=== PATIENT | female | born 2000 | race Hispanic/Latino ===

== ENCOUNTER 2022-11-20 08:45 | Emergency (ER) | payer OTHER, SELFPAY ==
--- OUTSIDE RECORDS SUMMARY | 2022-11-20 08:53 | XMS REPORT | Continuity of Care Document ---
:2000 Author Organization [facility] t Address [address] [place] [address] Care Team Providers Name Role Phone PCP, PATIENT DOES NOT HAVE A Primary Care Physician José Stern Attending Clinician Unavailable WALLACE VASQUEZ Attending Clinician Unavailable Asaf Meneses MD Attending Clinician Wallace Vasquez MD Attending Clinician Amdaeo Bacon Attending Clinician AMADEO HENDRICKS Attending Clinician Unavailable Claudy Kyle Attending Clinician Unavailable Leonila Pope Attending Clinician Unavailable Naz Haddad Attending Clinician Unavailable Jany Hammond Attending Clinician Unavailable Jameson Banerjee Attending Clinician Unavailable Kashmir VITALE, Bari Mera Attending Clinician Medardo Delgado Attending Clinician Unavailable Jovi White Attending Clinician Unavailable Leona VITALE, Galen Attending Clinician GALEN JACKSON Attending Clinician Unavailable Ramesh Mason Attending Clinician RAMESH EASTMAN Attending Clinician Unavailable Monica Ash Attending Clinician Unavailable Dm VITALE, Victor M Burks Attending Clinician Lashaun Blackburn DO Attending Clinician Quan VITALE, Mati Greene Attending Clinician Marylou Latham Attending Clinician Claudy Kyle Admitting Clinician Unavailable AMADEO HENDRICKS Admitting Clinician Unavailable Physician, No Primary or Family Admitting Clinician Unavaila RAMESH Macias Admitting Clinician Unavailable Payers Payer Name Policy Policy Number Effective Expiration Source Type Date Date [facility] [id number] 2016 00:00:00 [facility] [id number] 2016 [facility] PLANTX 00:00:00 [facility] [id number] 2015 -PresentHMO HIM MONTE [id number] 2020 [facility] COMM NON 00:00:00 [facility] MARKETPLACE [id number] 2020-P resentPPO Problems Condition Condition Condition Status Onset Resolution Last Treating Co mments Source Name Details Category Date Date Treatment Clinician Date No known No known Disease Unive rs active active ity of problems problems [facility] Allergies, Adverse Reactions, Alerts Allergy Allergy Status Severity Reaction(s) Onset Inactive Treating Comm ents Source Name Type Date Date Clinician No Known DA Active U [facility] Clear s 00:00: Whitney 00 [facility] No Known DA Active U 2022-0 [facility] All[facility]ie 2-06 Clear s 00:00: Whitney 00 [facility] No Known DA Active U 2018-0 [facility] 3-25 [place] 00:[facility]: e 00 [facility] No Known DA Active U 2018-0 [facility] Allergie 3-25 [place] 00:00: e 00 [facility] No Known DA Active U 2016-0 [facility] Allergie 5-13 Clear s 00:00: Whitney 00 [facility] No Known DA Active U 2014-0 [facility] Allergie 6-02 Clear s 00:00: Whitney 00 [facility] NO KNOWN Drug Active Univers ALLERGIE Class ity of S [facility] Social History Social Habit Start Date Stop Date Quantity Comments Source Exposure to Not sure [facility] SARS-CoV-2 [facility] (event) [place] Alcohol intake 2021-03-28 2021-03-28 Ex-drinker [facility] 00:00:00 00:00:00 (finding) Tobacco use and 2021-02-02 2021-02-02 Never used Universit y of exposure 00:00:00 00:00:00 [facility] Sex Assigned At [birth year] [facility] 00:00:00 00:00:00 Smoking Status Start Date Stop Date Source Social History [facility] Medications Ordered Filled Start Stop Current Ordering Indication Dosage Frequency Signature Comments Components Source Medication Medication Date Date Medication? Clinician (SIG) Name Name ondansetron Yes [id number] 4mg Take 1 Univers 4 mg 3-09 tablet by ity of disintegrat 00:00: mouth [place] ing tablet 00 every 8 Medica l (eight) Branch hours as needed for Nausea and Vomiting (N/V) for up to 16 doses. acetaminoph Yes [id number] 1{tbl} Take 1 Un cherelle en-codeine 3-09 tablet by ity of 300-30 mg 00:00: mouth [place] tablet 00 every 6 Medical (six) Branch hours as needed for Pain (scale 1-3) for up to 16 doses. Indication s: acute pain cefpodoxime 2021- No [id number] 200mg Take 1 Univers 200 mg 3-09 03-24 tablet by ity of tablet 00:00: 04:59 mouth 2 [place] 00 :00 (two) Medical times Branch daily for 14 days. iopamidol 2020- No [id number] 100mL 100 mL, Univers (ISOVUE 01-29 Intravenou ity o f 300-500 mL) 16:30: 15:26 s, ONCE, 1 [place] injection 00 :00 dose, Fri Medic al 100 mL 01/29/21 at Branch 1130, Routine ketorolac 2020- No 30mg 30 mg, Unive rs (TORADOL) 01-29 Slow IV ity of injection 16:15: 16:04 Push, [place] 30 mg 00 :00 ONCE, 1 Medical dose, Fri Branch 01/29/21 at 1115, IRENE
Fa culty member approving Restricted medication : RAMESH EASTMAN R famotidine 2020- No 20mg 20 mg, Univ ers (PEPCID 01-29 Slow IV ity of (PF)) 16:15: 16:04 Push, [place] injection 00 :00 ONCE, 1 Medical 20 mg dose, Fri Branch 01/29/21 at 1115, IRENE ondansetron 2020- No 4mg 4 mg, Slow Univers (ZOFRAN 01-29 IV Push, ity of (PF)) 16:15: 16:05 ONCE, 1 [place] injection 4 00 :00 dose, Fri Med ical mg 01/29/21 at Branch 1115, IRENE NaCl 0.9% 2020- No 1000mL at 999 Uni vers (NS) bolus 01-29 mL/hr, ity of infusion 16:15: 17:04 1,000 mL, Luke as 1,000 mL 00 :00 IV Medical Infusion, Branch ONCE, 1 dose, 01/29/21 at 1115, STAT dicyclomine Yes [id number] 10mg Take 1 Univers 10 mg 5-07 capsule by ity of capsule 00:00: mouth 4 [place] 00 (four) Medical times Branch daily as needed for Abdominal pain. ondansetron Yes [id number] 4mg Take 1 Univers (ZOFRAN 5-07 tablet by ity of ODT) 4 mg 00:00: mouth [place] disintegrat 00 every 8 Medic al ing tablet (eight) Branch hours as needed for Nausea and Vomiting (N/V) for up to 15 doses. dicyclomine Yes Umbilical 10mg Take 1 Univers 10 mg 5-07 hernia capsule by ity of capsule 00:00: without mouth 4 [place] 00 obstruction (four) Medica l and without times Branch gangrene daily as needed for Abdominal pain. ondansetron Yes Umbilical 4mg Take 1 Univers (ZOFRAN 5-07 hernia tablet by ity o f ODT) 4 mg 00:00: without [place] disintegr[place] 00 obstruction every 8 Medical ing tablet and without (eight) Branch gangrene hours as needed for Nausea and Vomiting (N/V) for up to 15 doses. famotidine 2020- No Umbilical 20mg Take 1 Univers (PEPCID) 20 5-07 05-18 hernia tablet by ity of mg tablet 00:00: 04:59 without mouth 2 [place] 00 :00 obstruction (two) Medical and without times Branch gangrene daily for 10 days. famotidine 2020- No 20mg Q.5D Take 1 Meth franck (PEPCID) 20 4-03 04-19 tablet (20 s t MG tablet 00:00: 04:59 mg total) Ho spita 00 :00 by mouth 2 l (two) times a day for 15 days. famotidine 2020-2020- No 20mg Q.5D Take 1 Meth franck (PEPCID) 20 4-03 04-19 tablet (20 s t MG tablet 00:00: 04:59 mg total) Ho spita 00 :00 by mouth 2 l (two) times a day for 15 days. sucralfate 2020-0 2020- No 1g Q.25D Take 10 mL Methodi (Carafate) 4- 04-09 ([address] 100 mg/mL 00:00: 04:59 total) by Ho spita suspension 00 :00 mouth 4 l (four) times a day for 5 days. sucralfate 2020-0 2020- No 1g Q.25D Take 10 mL Methodi (Carafate) 4- 04-09 ([address] 100 mg/mL 00:00: 04:59 total) by Ho spita suspension 00 :00 mouth 4 l (four) times a day for 5 days. ondansetron 2020-0 Yes 4mg Q8H Take 1 Meth franck (Zofran) 4 2-07 tablet (4 st MG tablet 00:00: mg total) Hos makayla 00 by mouth l every 8 (eight) hours as needed for nausea or vomiting for up to 10 doses. ondansetron 2020-0 Yes 4mg Q8H Take 1 Meth franck (Zofran) 4 2-07 tablet (4 st MG tablet 00:00: mg total) Hos makayla 00 by mouth l every 8 (eight) hours as needed for nausea or vomiting for up to 10 doses. ondansetron 2020-0 Yes 4mg Q8H Take 1 Meth franck (Zofran) 4 2-07 tablet (4 st MG tablet 00:00: mg total) Hos makayla 00 by mouth l every 8 (eight) hours as needed for nausea or vomiting for up to 10 doses. nitrofurant 2020- No 100mg Q.5D Take 1 Me thodi oin, 10-[address] macrocrysta 00:00: 05:59 (100 mg Ho spita l-monohydra 00 :00 total) by l te, mouth 2 (MACROBID) (two) 100 MG times a capsule day for 5 days. nitrofurant 2020- No 100mg Q.5D Take 1 Me thodi oin, 10-[address] macrocrysta 00:00: 05:59 (100 mg Ho spita l-monohydra 00 :00 total) by l te, mouth 2 (MACROBID) (two) 100 MG times a capsule day for 5 days. fluconazole 2020- No 100mg Take 1 Me thodi (DIFLUCAN) 10-[address] 100 MG 00:00: 05:59 (100 mg Hospita tablet 00 :00 total) by l mouth once for 1 dose. fluconazole 2020-2020- No 100mg Take 1 Me thodi (DIFLUCAN) 10-[address] 100 MG 00:00: 05:59 (100 mg Hospita tablet 00 :00 total) by l mouth once for 1 dose. ondansetron 2020-2020- No 4mg Q8H Take 1 Met hodi ODT (Zofran 17 -17 tablet (4 st ODT) 4 MG 00:00: 05:59 mg total) Ho spita disintegrat 00 :00 by mouth l ing tablet every 8 (eight) hours as needed for nausea or vomiting for up to 30 days. ondansetron 2020- No 4mg Q8H Take 1 Met hodi ODT (Zofran -17 -17 tablet (4 st ODT) 4 MG 00:00: 05:59 mg total) Ho spita disintegrat 00 :00 by mouth l ing tablet every 8 (eight) hours as needed for nausea or vomiting for up to 30 days. amoxicillin 2020- No 1{tbl} Q12H Take 1 M ethodi -pot 1-17 10-[address] clavulanate 00:00: 05:59 mouth Hosp katerin (AUGMENTIN) 00 :00 every 12 l 875-125 mg (twelve) per tablet hours for 10 days. amoxicillin 2020- No 1{tbl} Q12H Take 1 M ethodi -pot -10-[address] clavulanate 00:00: 05:59 mouth Hosp katerin (AUGMENTIN) 00 :00 every 12 l 875-125 mg (twelve) per tablet hours for 10 days. baclofen Yes 10 mg = 1 M emoria mg oral 6-19 tab, PO, l tablet 01:54: TID, # 42 Matthew n 00 tab, 1 Refill(s), Pharmacy: [facility] [id number] [employer] Yes 300 mg = 1 Mem oria 300 MG Oral 6-19 cap, PO, l Capsule 01:54: Q12H, PRN Cecilia nn 00 Pain, # 28 cap, 1 Refill(s), Pharmacy: [facility] [id number] [employer] Yes 300 mg = 1 Mem oria 300 MG Oral 6-19 cap, PO, l Capsule 01:54: Q12H, PRN Cecilia nn 00 Pain, # 28 cap, 1 Refill(s), Pharmacy: [id number] baclofen Yes 10 mg = 1 M emoria mg oral 6-19 tab, PO, l tablet 01:54: TID, # 42 Matthew n 00 tab, 1 Refill(s), [id number] Azithromyci No See Memori a n 40 MG/ML 4-18 Instructio l Oral 21:52: ns, 2.5 [place] Suspension 00 tsp today then 1.25 tsp for the next 4 dqys., # 35 mL, 0 Refill(s), [facility] Azithromyci No See Memori a n 40 MG/ML 4-18 Instructio l Oral 21:52: ns, 2.5 [place] Suspension 00 tsp today then 1.25 tsp for the next 4 dqys., # 35 mL, 0 Refill(s), [facility] Bromphenira Yes 5 mL, PO, M emoria mine 4-18 TID, PRN l Maleate 0.4 21:41: cough, X 8 Brien MG/ML / 00 day, # 120 Dextrometho mL, 0 rphan Refill(s) Hydrobromid e 2 MG/ML / Pseudoephed rine Hydrochlori de 6 MG/ML Oral Solution [Bromfed DM] Azithromyci No See Memori a n 40 MG/ML -18 Instructio l Oral 21:41: ns, 1.5 [place] Suspension 00 tsp today then 0.75 tsp next 4 days., # 25 mL, 0 Refill(s) Bromphenira Yes 5 mL, PO, M emoria mine 4-18 TID, PRN l Maleate 0.4 21:41: cough, X 8 [place] MG/ML / 00 day, # 120 Dextrometho mL, 0 rphan Refill(s) Hydrobromid e 2 MG/ML / Pseudoephed rine Hydrochlori de 6 MG/ML Oral Solution [Bromfed DM] Azithromyci No See Memori a n 40 MG/ML 4-18 Instructio l Oral 21:41: ns, 1.5 [place] Suspension 00 tsp today then 0.75 tsp next 4 days., # 25 mL, 0 Refill(s) Immunizations Ordered Filled Immunization Date Status Comments Sourc e Immunization Name Name Influenza Virus 2021-11-12 Completed Universit y of Vaccine 00:00:00 [facility] [place] [facility] Vital Signs Vital Name Observation Time Observation Value Comments Source Systolic blood 2021-12-08 18:28:00 100 mm[Hg] Univer sity of pressure [facility] Diastolic blood 2021-12-08 18:28:00 67 mm[Hg] Unive rsity of pressure [facility] [place] [facility] Heart rate 2021-12-08 18:28:00 107 /min [facility] [place] [facility] [place] Body temperature 2021-12-08 18:28:00 36.61 Naty Univ ersity [facility] [place] [facility] Respiratory rate 2021-12-08 18:28:00 18 /min Univ [facility] [place] [facility] Body height 2021-12-08 18:28:00 160 cm [facility] [place] [facility] [place] Body weight 2021-12-08 18:28:00 65.318 kg [facility] [place] [facility] [place] BMI 2021-12-08 18:28:00 25.51 kg/m2 Universi ty of [facility] [place] [facility] Oxygen saturation in 2021-12-08 18:28:00 98 /min University of Arterial blood by [facility] [place] [facility] Pulse oximetry Branch Systolic blood 2021-01-29 17:07:00 112 mm[Hg] Univer sity of pressure [facility] Diastolic blood 2021-01-29 17:07:00 73 mm[Hg] Unive rsity of pressure [facility] Heart rate 2021-01-29 17:07:00 94 /min [facility] [place] [facility] [place] Body temperature 2021-01-29 17:07:00 36.72 Naty Univ ers[facility] [place] [facility] Respiratory rate 2021-01-29 17:07:00 18 /min Univ [facility] [place] [facility] Oxygen saturation in 2021-01-29 17:07:00 100 /min University of Arterial blood by [place] [facility] Pulse oximetry Branch Body weight 2021-01-29 15:04:00 63.504 kg [facility] [place] [facility] [place] Systolic blood 2021-01-29 17:07:00 112 mm[Hg] Univer sity of pressure [facility] Diastolic blood 2021-01-29 17:07:00 73 mm[Hg] Unive rsity of pressure [facility] Heart rate 2021-01-29 17:07:00 94 /min Universi [facility] Body temperature 2021-01-29 17:07:00 36.72 Naty [facility] Respiratory rate 2021-01-29 17:07:00 18 /min [facility] Oxygen saturation in 2021-01-29 17:07:00 100 /min University Arterial blood by [facility] [place] [facility] Pulse oximetry Branch Body weight 2021-01-29 15:04:00 63.504 kg [facility] Oxygen saturation in 2021-03-28 22:00:00 99 /min [facility] Arterial blood by Pulse oximetry Systolic blood 2021-03-28 22:00:00 108 mm[Hg] [facility] pressure Diastolic blood 2021-03-28 22:00:00 62 mm[Hg] [facility] pressure Heart rate 2021-03-28 22:00:00 87 /min [facility] Respiratory rate 2021-03-28 22:00:00 20 /min [facility] Body temperature 2021-03-28 20:41:00 36.89 Naty [facility] Body height 2020-12-26 14:22:00 162.6 cm [facility] Body weight 2020-12-26 14:22:00 64.6 kg [facility] BMI 2020-12-26 14:22:00 24.45 kg/m2 [facility] Weight 2018-03-13 01:37:[address] [facility] [place] Systolic (mm Hg) 2018-03-13 01:37:00 Len rial [place] Diastolic (mm Hg) 2018-03-13 01:37:00 Mem orial [place] Heart Rate 2018-03-13 01:37:00 [facility] BMI Calculated 2018-03-13 01:37:00 Memori al [place] Height 2018-03-13 01:37:00 [facility] Oral (F) 2018-03-13 01:37:00 98.0 F [facility] [place] Weight 2018-01-10 21:06:00 [facility] BMI Calculated 2018-01-10 21:06:00 Memori al [place] Height 2018-01-10 21:06:00 170.18 cm [facility] Heart Rate 2018-01-10 21:06:00 [facility] Temperature Oral (F) 2018-01-10 21:06:00 97.8 F Darrian Tesfaye Systolic (mm Hg) 2018-01-10 21:06:00 Len Tesfaye Diastolic (mm Hg) 2018-01-10 21:06:00 Mem orial [place] Procedures Procedure Date / Time Performing Clinician Source Performed POCT URINALYSIS 2021-12-08 00:00:00 Bari Delgadillo [facility] [id number] 2021-11-11 00:00:00 [facility] [id number] 2021-11-11 00:00:00 [facility] [id number] 2021-11-11 00:00:00 [facility] [id number] 2021-11-11 [facility]:00[facility] US SINGLE LESS 2021-03-28 23:08:37 [facility] THAN 14 WEEKS URINE CULTURE 2021-03-28 21:01:00 [facility] HC COMPLETE BLD COUNT 2021-03-28 21:01:00 [facility] W/AUTO DIFF BASIC METABOLIC PANEL 2021-03-28 21:01:00 [facility] URINALYSIS SCREEN AND 2021-03-28 21:01:00 [facility] MICROSCOPY, WITH REFLEX TO CULTURE HCG QUALITATIVE, URINE 2021-03-28 21:01:00 [facility] [place] SCREEN HCG QUANTITATIVE, SERUM 2021-03-28 21:01:00 [facility] ESTIMATED GFR 2021-03-28 21:01:00 [facility] ECG 12-LEAD 2021-03-28 20:46:20 [facility] ECG ED PRELIMINARY 2021-03-28 20:39:29 [facility] INTERPRETATION CT ABDOMEN PELVIS W 2021-01-29 15:31:28 Ramesh Eastman [facility] POCT TEST 2021-01-29 15:23:00 Ramesh Eastman [facility] LIPASE 2021-01-29 15:20:00 Ramesh Eastman [facility] TEST, SERUM 2021-01-29 15:20:00 Ramesh Eastman [facility] HEPATIC FUNCTION PANEL 2021-01-29 15:20:00 Ramesh Eastman [facility] ([id number]) (ALB,T.PRO,BILI Medical Branch T,BU/BC,ALT,AST,ALK PHOS) BASIC METABOLIC PANEL 2021-01-29 15:20:00 Ramesh Eastman [facility] (NA, K, CL, CO2, GLUCOSE, Medica l Branch BUN, CREATININE, CA) CBC WITH DIFF 2021-01-29 15:20:00 Ramesh Eastman [facility] URINALYSIS 2021-01-29 15:20:00 Ramesh Eastman [facility] URINE CULTURE 2020-12-26 15:13:00 [facility] US GALLBLADDER 2020-12-26 14:58:43 [facility] URINALYSIS SCREEN AND 2020-12-26 14:57:00 [facility] MICROSCOPY, WITH REFLEX TO CULTURE HC COMPLETE BLD COUNT 2020-12-26 14:43:00 [facility] W/AUTO DIFF COMPREHENSIVE METABOLIC 2020-12-26 14:43:00 [facility] PANEL LIPASE LEVEL 2020-12-26 14:43:00 [facility] HCG QUALITATIVE, SERUM 2020-12-26 14:43:00 [facility] SCREEN ESTIMATED GFR 2020-12-26 14:43:00 [facility] XR ABDOMEN 1 VW 2020-11-01 16:50:00 [facility] URINE CULTURE 2020-11-01 16:08:00 [facility] HC COMPLETE BLD COUNT 2020-11-01 15:43:00 [facility] W/AUTO DIFF COMPREHENSIVE METABOLIC 2020-11-01 15:43:00 [facility] PANEL LIPASE LEVEL 2020-11-01 15:43:00 [facility] HCG QUALITATIVE, SERUM 2020-11-01 15:43:00 [facility] SCREEN URINALYSIS SCREEN AND 2020-11-01 15:43:00 [facility] MICROSCOPY, WITH REFLEX TO CULTURE ESTIMATED GFR 2020-11-01 15:43:00 [facility] URINE CULTURE 2020-10-21 08:36:00 Lashaun Blackburn spital URINALYSIS SCREEN AND 2020-10-21 08:18:00 Lashaun Blackburn [facility] MICROSCOPY, WITH REFLEX TO CULTURE HCG QUALITATIVE, URINE 2020-10-21 08:18[facility]00 [facility] 2020-10-21 07:34:00 Lashaun Blackburn spital XR ABDOMEN ACUTE INC 2020-10-11 21:39:51 [facility] CHEST 1V URINE CULTURE 2020-10-11 21:12:00 [facility] HC COMPLETE BLD COUNT 2020-10-11 21:12:[address] [facility] W/AUTO DIFF COMPREHENSIVE METABOLIC 2020-10-11 21:12:[address] [facility] PANEL LIPASE LEVEL 2020-10-11 21:12:00 [facility] URINALYSIS SCREEN AND 2020-10-11 21:12:00 [facility] MICROSCOPY, WITH REFLEX TO CULTURE HCG QUALITATIVE, URINE 2020-10-11 21:12:00 [facility] SCREEN ESTIMATED GFR 2020-10-11 21:12:00 [facility] Strapping; ankle and/or 2018-03-13 01:54:00 Len escudero [place] foot Tonsillectomy [facility] Plan of Care Planned Activity Planned Date Details Comments Source Future Scheduled 2022-09-17 Screening for [facility] Test 07:02:04 malignant neoplasm of cervix (procedure) [code = 770991534] Future Scheduled 2022-09-17 INFLUENZA VACCINE Method [facility] Test 07:02:04 [code = INFLUENZA VACCINE] Future Scheduled 2022-09-17 COVID-19 VACCINE (#1) [facility] [place] Test 07:02:04 [code = COVID-19 VACCINE (#1)] Future Scheduled 2022-09-17 Screening for [facility] Test 07:02:04 Chlamydia trachomatis (procedure) [code = 060268733] Future Scheduled 2022-09-17 Hepatitis C screening [facility] [place] Test 07:02:04 (procedure) [code = 547753339] Future Scheduled 2021-05-26 INFLUENZA VACCINE Univer sity [place] Test 00:00:00 (Season Ended) [code = Medic al Branch INFLUENZA VACCINE (Season Ended)] Future Scheduled 2020 DTaP,Tdap,and Td Univers ity [facility] Test 00:00:00 Vaccines (1 - Tdap) Medical Branch [code = DTaP,Tdap,and Td Vaccines (1 - Tdap)] Future Scheduled 2019 Hepatitis C screening [facility] [place] Test 00:00:00 (procedure) [code = Medical Branch 543678977] Future Scheduled 2017 Screening for [facility] Test 00:00:00 Chlamydia trachomatis Medica l Branch (procedure) [code = 422150305] Future Scheduled 2017 SARS-CoV-2 (COVID-19) [facility] [place] Test 00:00:00 Vaccine (1) [code = Medical Branch SARS-CoV-2 (COVID-19) Vaccine (1)] Future Scheduled 2013 Depression screening [facility] [place] Test 00:00:00 (procedure) [code = Medical Branch 140492848] Future Scheduled 2013 Well child visit Univers ity [facility] Test 00:00:00 (procedure) [code = Medical Branch [id number]] Future Scheduled 2012 HPV VACCINES (1 - [facility] [place] Test 00:00:00 2-dose series) [code = Medic al Branch HPV VACCINES (1 - 2-dose series)] Future Scheduled 2011 MENINGOCOCCAL B [facility] [place] Test 00:00:00 VACCINES (1 of 2 - Medical B ranch Risk Bexsero 2-dose series) [code = MENINGOCOCCAL B VACCINES (1 of 2 - Risk Bexsero 2-dose series)] Future Scheduled 2002 VARICELLA VACCINES (1 Un iversity [facility] Test 00:00:00 of 2 - 2-dose Medical Branch childhood series) [code = VARICELLA VACCINES (1 of 2 - 2-dose childhood series)] Future Scheduled EKG-12 LEAD ROUTINE [facility] ONCE [code = 4135] Medical B ranch Future Scheduled COVID-19 VACCINE (1) Met [facility] Test [code = COVID-19 VACCINE (1)] Future Scheduled [facility]IA [facility] [code = CHLAMYDIA SCREENING] Future Scheduled Hepatitis C screening [facility] Test (procedure) [code = 781184967] Future Scheduled INFLUENZA VACCINE [facility] Test [code = INFLUENZA VACCINE] Future Scheduled CHLAMYDIA SCREENING Meth odist Hospital Test [code = CHLAMYDIA SCREENING] Future Scheduled COVID-19 [facility]ACCINE (1) [facility] [code = COVID-19 VACCINE (1)] Future Scheduled Hepatitis C screening Me [facility] Test (procedure) [code = 529533149] Future Scheduled INFLUENZA VACCINE Method [facility] Hospital Test [code = INFLUENZA VACCINE] Encounters Start End Encounter Admission Attending Care Care Encounter Source Date/Time Date/Time Type Type Clinicians Facility Department ID 2022-05-09 2022-05-09 Emergency EM ILYA Katz SHERLYN [id number] [facility] 12:17:00 13:46:00 José 80 Psychiatric 2022-05-09 2022-05-09 Emergency EM ILYA Katz YOLIS [id number] [facility] 12:17:00 13:46:00 José [id number] Psychiatric 2021-12-22 2021-12-22 Outpatient R [facility] [facility] [id number] Univers 16:00:00 16:00:00 ity [facility] 2021-12-08 2021-12-08 Outpatient R CHRISTINA [facility] [id number] Univers 13:30:00 14:20:14 WALLACE itpallavi [facility] 2021-12-08 2021-12-08 Office Asaf Meneses [facility] 1.2.840 .114 [id number] Univers 13:30:00 14:20:14 Visit Wallace Vasquez PRIMARY 350.1.13.10 ity of CARE 4.2.7.2.686 [facility] [phone] [address] 2021-12-01 2021-12-01 Emergency [facility] 1.2.034.475 [id number] Univers 12:56:00 19:46:00 [facility] 350.1.13.10 it y of [place]AG[place] 4.2.7.2.686 [facility] [phone] [address] ([facility]) 2021-12-01 2021-12-01 Emergency X [facility], [facility] ERT [id number] Univers 12:56:00 19:46:00 AMADEO marypallavi [facility] 2021-11-15 2021-11-15 Outpatient [facility] PIJFGRD LYG [facility] 00:00:00 00:00:00 [id number] 2021-11-11 2021-11-13 Inpatient Claudy Madera [facility]L OBPP [id number] [facility] 05:52:00 15:50:00 19 Psychiatric 2021-11-08 2021-11-08 Outpatient [facility] PIJFGRD LYG COH 00:00:00 00:00:00 [id number] 2021-10-31 2021-10-31 Emergency EM Niko, HCACL SHAUN [id number] [facility] 14:17:00 16:30:00 Leonila 24 Psychiatric 2021-10-28 2021-10-28 Emergency EM Delroy [facility] SHAUN [id number] [facility] 00:20:00 02:30:00 Puckly, 63 Clear Naz [facility] 2021-04-23 2021-04-23 Outpatient Jany Loja [facility]L [facility] [id number] [facility] 13:25:00 13:25:00 57 Psychiatric 2021-04-22 2021-04-22 Emergency EM Lavonne, HCACL SHERLYN [id number] [facility] 11:04:00 16:29:00 Jameson 97 Psychiatric 2021-03-28 2021-03-28 Emergency Bari Marlow 1.2.840.1 [id number] Methodi 15:36:00 19:36:[address] 3.430.2.7 Hospit a .3.202255 l .8 2021-03-28 2021-03-28 Travel 1.2.840.1 1.2.994.091 1701 [id number] Methodi 00:00:00 00:00:[address] 3.430.2.7 0.2.7.3.698 Ho spita .3.200839 084.8 l .8 2021-03-07 2021-03-07 Emergency EM Sandy, YOLISBM SHERLYN [id number] [facility] 19:00:00 22:26:00 Medardo 36 [facility] 2021-03-02 2021-03-02 Inpatient EL Jovi White [facility] OPLA [id number] [id number] [facility] 08:00:00 23:00:00 50 [facility] 2021-03-02 2021-03-02 Outpatient Jovi White [facility] LABO [id number] [facility] 13:28:00 13:28:00 13 Psychiatric 2021-02-02 2021-02-02 Office Leona Galen [facility] 1.2.840.114 [id number] 15:39:18 15:54:18 Visit Health 350.1.13.10 Clear 4.2.7.2.686 [place] [phone] [place] [address] Office Building 2021-02-02 2021-02-02 Office Leona Galen [facility] 1.2.840.114 [id number] Univers 15:39:18 15:54:18 Visit Health 350.1.13.10 it y of [place].686 [place] [id number] [address] Office Building 2021-02-02 2021-02-02 Outpatient GALEN HAYES [facility] [id number] Univers 15:45:00 15:45:00 itpallavi [facility] 2021-01-29 2021-01-29 Emergency Sangeeta [facility] 1.2.218.074 [id number] Univers 10:06:00 12:11:00 Ramesh [facility] 350.1.13.10 it y [place] 4.2.7.2.686 [facility] [phone] [address] ([facility]) 2021-01-29 2021-01-29 Emergency X SANGEETA, [facility] ERT [id number] Univers 10:06:00 12:11:00 RAMESH pallavi [facility] 2021-01-29 2021-01-29 Emergency X SANGEETA, [facility] ERT [id number] Univers 10:06:00 10:06:00 RAMESH [facility] 2021-01-03 2021-01-03 Emergency EM Dark, Monica HCACL SHERLYN [id number] [facility] 09:26:00 12:57:00 72 Psychiatric 2020-12-26 2020-12-26 Emergency Hujesus, 1.2.840.1 [id number] [id number] Methodi 09:18:00 10:56:[address]1.[address] 3.430.2.7 Hospit a .3.188054 l .8 2020-12-26 2020-12-26 Travel 1.2.840.1 1.2.678.825 9521 [id number] Methodi 00:00:00 00:00:[address] 3.430.2.7 0.2.7.3.698 Ho spita .3.234384 084.8 l .8 2020-12-19 2020-12-19 Inpatient HCACL HCACL [id number] [facility] 10:48:26 10:48:26 53 Psychiatric 2020-11-01 2020-11-01 Emergency Huque, 1.2.840.1 [id number] Methodi 09:26:00 11:51:00 Victor M Sifuentesun 36594.1.[address] 3.430.2.7 Hospit a .3.363829 l .8 2020-11-01 2020-11-01 Travel 1.2.840.1 1.2.034.791 3756 [id number] Methodi 00:00:00 00:00:[address] 3.430.2.7 0.2.7.3.698 Ho spita .3.682698 084.8 l .8 2020-10-24 2020-10-26 Inpatient HCACL SHERLYN [id number] [facility] 12:05:00 07:20:[address] [place] [address] 2020-10-21 2020-10-21 Emergency Svach, 1.2.840.1 [id number] [id number] Methodi 01:09:00 03:00:00 Lashaun R [address].1.[address] 3.430.2.7 Hospit a .3.598121 l .8 2020-10-21 2020-10-21 Travel 1.2.840.1 1.2.002.451 3574 [id number] Methodi 00:00:00 00:00:[address] 3.430.2.7 0.2.7.3.698 Ho spita .3.102528 084.8 l .8 2020-10-11 2020-10-11 Emergency Marcantel, 1.2.840.1 [id number] Methodi 14:33:00 16:18:00 Mati L [address]150.1.[address] 3.430.2.7 Hospit a .3.391262 l .8 2018-05-30 2018-05-30 Ambulatory nullFlavo [facility] [id number] Memoria 16:00:00 16:00:00 Pre-Reg r Care Clear 02 [facility] 2018-05-30 2018-05-30 Ambulatory nullFlavo MH Urgent [id number] Memoria 16:00:00 16:00:00 Pre-Reg r Care Clear 02 l Devonte Tesfaye 2018-05-30 2018-05-30 Outpatient SJ ALONZO [id number] Memoria 11:00:00 11:00:00 02 laura Tesfaye 2018-05-30 2018-05-30 Outpatient Yeison, [facility] [id number] 11:00:00 11:00:00 Marylou2018-03-13 2018-03-13 Outpatient nullFlavo [facility] [id number] [id number] Memoria 01:30:00 04:59:59 r Care Clear 01 l Devonte Tesfaye 2018-03-13 2018-03-13 Outpatient nullFlavo Urgent [id number] Memoria 01:30:00 04:59:59 r Care Clear l Devonte Tesfaye 2018-03-12 2018-03-12 Outpatient [facility] [id number] 20:30:00 23:59:59 2018-03-12 2018-03-12 Outpatient SJ ALONZO [id number] Memoria 20:30:00 20:30:00 laura Tesfaye 2018-01-10 2018-01-11 Outpatient nullFlavo Urgent [id number] Memoria 20:30:00 04:59:59 r Care Clear 00 l Devonte Tesfaye 2018-01-10 2018-01-11 Outpatient nullFlavo Urgent [id number] Memoria 20:30:00 04:59:59 r Care Clear 00 l Devonte Tesfaye 2018-01-10 2018-01-10 Outpatient [facility] [id number] 15:30:00 23:59:59 2018-01-10 2018-01-10 Outpatient [facility] [id number] Memoria 15:30:00 15:30:00 00 laura Tesfaye Results Test Description Test Time Test Comments Results Result Comments Source UA RFLX MICR CULT IF INDICATED 2022-05-09 13:26:00 Test Item Value Reference Range Interpretation Comme nts UA COLOR (test code = COLU) YELLOW YEL/STRAW UA APPEARANCE (test code = APPU) CLOUDY CLEAR A UA GLUCOSE DIPSTICK (test code = DGLUU) NEGATIVE NEGATIVE UA BILIRUBIN DIPSTICK (test code = BILU) NEGATIVE NEGATIVE UA KETONE DIPSTICK (test code = KETU) NEGATIVE NEGATIVE UA SPECIFIC GRAVITY (test code = SGU) 1.020 1.005-1.030 N UA BLOOD DIPSTICK (test code = MOY) 2+ NEGATIVE A UA PH DIPSTICK (test code = JOSE LUIS) 6.0 5.0-7.0 N UA PROTEIN DIPSTICK (test code = PROU) 2+ NEGATIVE A UA UROBILINIOGEN DIPSTICK (test code = URO) 0.2 mg/dL 0.2-1.0 UA NITRITE DIPSTICK (test code = ANA) NEGATIVE NEGATIVE UA LEUKOCYTE ESTERASE DIPSTICK (test code = LEUU) 3+ NEGA TIVE A UA WBC (test code = WBCU) >50 WBC/HPF 0-3 A UA RBC (test code = RBCU) 11-20 RBC/HPF 0-3 UA WBC NO REFLEX (test code = WBCUCL) >50 WBC/HPF 0-3 A UA BACTERIA (test code = BACU) 1+ /HPF NONE SEEN A UA SQUAMOUS CELLS (test code = SQU) 6-10 /HPF NONE SEEN A UA MUCUS (test code = MUCU) 2+ /LPF NONE SEEN A Indication for culture: Suprapubic PainSpecimen Description: CLEAN CATCHUR HCG [id number] 13:15:00 Test Item Value Reference Range Interpretation Comments UR HCG QUAL (test code = HCGQLU) NEGATIVE NEGATIVE POCT URINALYSIS W SPECIFIC [id number] 18:57:00 Test Item Value Reference Range Interpretation Comments POCT U SP GRAV (test code = 1015 mg/dl 1.005-1.025 A 3255) POCT PH U (test code = 3254) 5 mg/dl 5-8 POCT U LEUK EST (test code = - Negative - Negative 3) POCT U NIT (test code = 3262) - Negative - Negative POCT U PROT (test code = 3259) trace Negative - Negative POCT U GLU (test code = 3256) neg Negative - Negative POCT U KETONE (test code = neg Negative - Negative 8) POCT U UROBILI (test code = norm 0.2-1 0) POCT U BILI (test code = 3261) - Negative - Negative POCT U BLD (test code = 3257) trace Negative - Negative POCT U COLOR (test code = gold 3266) POCT U APPEAR (test code = clear 3267) Lab Interpretation (test code Abnormal = 61398-6) [facility]2022-02-21 13:33:00 Test Item Value Reference Range Interpretation Comments SURGICAL (test code = SR) R UN DATE: 11/15/21 [place] - LAB PAGE 1 RUN TIME: 1333 Specimen Inquiry RUN USER: INTERFACE P ATIENT: CARLOS MISHRA LOC: JESICA U #: [id number] AGE/SX: 21/F ROOM: [facility] RE11/11/21REG DR: Claudy Kyle MD : 01 BED: 1 DIS: 11/13/21 STATUS: DIS IN TLOC: SPEC #: [id number] RECD: 11/12/21-905 STATUS: SOUT REQ #: [id number] MANUEL: 11/11/21- SUBM DR: Claudy Kyle MD ENTERED: 11/12/21 SP TYPE: SURGICAL OTHR DR: ORDERED: GM LEVEL 5, ANATOMIC SPEC PROCEDURES: GM LEVEL 5 (11/12/21) TISSUES: A. PLACENTA, THIRD TRIMESTER (28 + WEEKS) CLINICAL HISTORY SAME - DELIVERED FINAL DIAGNOSIS Placenta, delivery: Third trimester placenta, 430 g, appropriate for gestation age; membranes with no acute inflammation;Decidual vasculopathy; Trivascular umbilical cord unremarkable. GROSS DESCRIPTION Received in formalin and labeled "Placenta" is a saunders placenta, 16 x 16 x 3 cm. Thetrivascular umbilical cord measures 20 x 1.3 x 1.2 cm, inserting eccentrically to alocation 4 cm to the placental edge. The membranes attach marginally and are translucent. The placenta weighs 430 g after trimming the membranes and cord. The surface isgray-blue, with superficially distributed chorionic vessels. The maternal surface showsred-brown intact cotyledons. The parenchyma is dark red and spongy, with no discretelesion identified.Cassette summary: (A) - cord and membranes; (B) placenta edge; (C) - placenta center. Technical component performed at [facility],[address] [place] [address] Unless gross only, the diagnosis is based upon microscopic examination.Immunohistochemistr y: This test was developed and its performance characteristicsdetermined by this laboratory. It has not been approved nor does it need approvalby the [place] FDA. Appropriate positive and negative controls are reviewed and judgedto be acceptable. This laboratory is certified under the Clinical Laboratory ImprovementAmendments (CLIA-88) as qualified to perform high complexity clinical laboratory testing. CONTINUED ON NEXT PAGE R UN DATE: 11/15/21 [facility] - LAB PAGE 2 RUN TIME: 1333 Specimen Inquiry RUN USER: INTERFACE S KAREN #: [id number] PATIENT: CARLOS MISHRA #[id number] (Continued) CLINICAL INFORMATION @ 39.1 --- Signed SIGNATURE ON Alvaro Faust 11/15/21 1333 END OF REPORT CBC W/AUTO [id number] 07:45:00 Test Item Value Reference Range Interpretation Comments WHITE BLOOD CELL (test code = 13.0 x10 3/uL 4.5-11.0 H WBC) RED BLOOD CELL (test code = 4.27 x10 6/uL 3.54-5.02 N RBC) HEMOGLOBIN (test code = HGB) 8.3 g/dL 11.0-15.0 L HEMATOCRIT (test code = HCT) 29.4 % 33.0-45.0 L MEAN CELL VOLUME (test code = 68.9 fL 81.0-99.0 L MCV) MEAN CELL HGB (test code = MCH) 19.4 pg 27.0-33.0 L MEAN CELL HGB CONCETRATION 28.2 g/dL 33.0-37.0 L (test code = MCHC) RED CELL DISTRIBUTION WIDTH CV 16.7 % 11.5-14.5 H (test code = RDW) PLATELET COUNT (test code = 264 x10 3/uL 150-400 N PLT) NEUTROPHIL % (test code = NT%) 70.8 % 56.0-77.0 N LYMPHOCYTE % (test code = LY%) 20.9 % 14.0-32.0 N NEUTROPHIL # (test code = NT#) 9.20 x10 3/uL 2.0-7.6 H LYMPHOCYTE # (test code = LY#) 2.72 x10 3/uL 1.0-3.8 N MANUAL DIFF REQUIRED (test code NO = MDIFF) RED CELL DISTRIBUTION WIDTH SD 41.1 fL 37.0-54.0 N (test code = RDW-SD) MEAN PLATELET VOLUME (test code 10.7 fL 7.0-9.0 H = MPV) IMMATURE GRANULOCYTE % (test 0.3 % 0.0-2.0 N code = IG%) MONOCYTE % (test code = MO%) 5.8 % 4.8-9.0 N EOSINOPHIL % (test code = EO%) 1.6 % 0.3-3.7 N BASOPHIL % (test code = BA%) 0.6 % 0.0-2.0 N NUCLEATED RBC % (test code = 0.0 % 0-0 N NRBC%) IMMATURE GRANULOCYTE # (test 0.04 x10 3/uL 0.00-0.03 H code = IG#) MONOCYTE # (test code = MO#) 0.75 x10 3/uL 0.1-0.8 N EOSINOPHIL # (test code = EO#) 0.21 x10 3/uL 0.0-0.2 H BASOPHIL # (test code = BA#) 0.08 x10 3/uL 0.0-0.2 N NUCLEATED RBC # (test code = 0.00 x10 3/uL 0.0-0.1 N NRBC#) CORD ARTERIAL BLOOD [id number] 17:06:00 Test Item Value Reference Range Interpretation Comments CORD BLOOD PH (test code = PH/C) 7.24 7.18-7.38 N CORD BLOOD PCO2 (test code = 56 mmHg 32-66 N PCO2/C) CORD BLOOD PO2 (test code = 14 mmHg 6-30 N PO2/C) CORD BLOOD HCO3 (test code = 24 mmol/L 17-27 N HCO3/C) BASE EXCESS CORD (test code = -3.3 mmol/L -8.0-0.0 N JAY/C) O2 SATURATION (test code = O2S/C) 12 % 72-77 L CORD VENOUS BLOOD [id number] 17:06:00 Test Item Value Reference Range Interpretation Comments CORD VENOUS PH (test code = PHCV) 7.32 7.25-7.45 N CORD VENOUS PCO2 (test code = 44 mmHg 27-49 N PCO2CV) CORD VENOUS PO2 (test code = 23 mmHg 17-41 N PO2CV) CORD VENOUS HCO3 (test code = 22.6 MMOL/L 12-28 N HCO3CV) CORD VENOUS BASE EXCESS (test -3.5 mmol/L -8.0-0.00 N code = BEXCV) CORD VENOUS 02 SAT (test code = 34 % O2SCV) RAPID PLASMA [id number] 11:12:00 Test Item Value Reference Range Interpretation Comments RAPID PLASMA REAGIN (test code = NONREACTIVE NONREACTIVE RPR) AG HEPATITIS B [id number] 11:12:00 Test Item Value Reference Range Interpretation Comments AG HEPATITIS B SURFACE NON REACTIVE INDEX NonReactive (test code = HBSAG) AB HIV 1 11:12:00 Test Item Value Reference Range Interpretation Comments AB HIV 1 2 (test code = AKV82QH) Nonreactive Nonreactive CBC W/AUTO [id number] 11:48:00 Test Item Value Reference Range Interpretation Comments WHITE BLOOD CELL (test code = 9.8 x10 3/uL 4.5-11.0 N WBC) RED BLOOD CELL (test code = 4.65 x10 6/uL 3.54-5.02 N RBC) HEMOGLOBIN (test code = HGB) 9.1 g/dL 11.0-15.0 L HEMATOCRIT (test code = HCT) 31.4 % 33.0-45.0 L MEAN CELL VOLUME (test code = 67.5 fL 81.0-99.0 L MCV) MEAN CELL HGB (test code = MCH) 19.6 pg 27.0-33.0 L MEAN CELL HGB CONCETRATION 29.0 g/dL 33.0-37.0 L (test code = MCHC) RED CELL DISTRIBUTION WIDTH CV 16.5 % 11.5-14.5 H (test code = RDW) PLATELET COUNT (test code = 334 x10 3/uL 150-400 N PLT) NEUTROPHIL % (test code = NT%) 72.9 % 56.0-77.0 N LYMPHOCYTE % (test code = LY%) 21.1 % 14.0-32.0 N NEUTROPHIL # (test code = NT#) 7.12 x10 3/uL 2.0-7.6 N LYMPHOCYTE # (test code = LY#) 2.06 x10 3/uL 1.0-3.8 N MANUAL DIFF REQUIRED (test code NO = MDIFF) RED CELL DISTRIBUTION WIDTH SD 39.6 fL 37.0-54.0 N (test code = RDW-SD) MEAN PLATELET VOLUME (test code 10.6 fL 7.0-9.0 H = MPV) IMMATURE GRANULOCYTE % (test 0.4 % 0.0-2.0 N code = IG%) MONOCYTE % (test code = MO%) 4.0 % 4.8-9.0 L EOSINOPHIL % (test code = EO%) 1.2 % 0.3-3.7 N BASOPHIL % (test code = BA%) 0.4 % 0.0-2.0 N NUCLEATED RBC % (test code = 0.0 % 0-0 N NRBC%) IMMATURE GRANULOCYTE # (test 0.04 x10 3/uL 0.00-0.03 H code = IG#) MONOCYTE # (test code = MO#) 0.39 x10 3/uL 0.1-0.8 N EOSINOPHIL # (test code = EO#) 0.12 x10 3/uL 0.0-0.2 N BASOPHIL # (test code = BA#) 0.04 x10 3/uL 0.0-0.2 N NUCLEATED RBC # (test code = 0.00 x10 3/uL 0.0-0.1 N NRBC#) RBC [id number] 11:48:00 Test Item Value Reference Range Interpretation Comments ANISOCYTOSIS (test code = ANISO) 2+ POLYCHROMASIA (test code = POLC) 1+ MICROCYTOSIS (test code = MICR) 2+ DRUGS OF ABUSE SCREEN [id number] 11:32:00 Test Item Value Reference Range Interpretation Comments URN COCAINE (test code NEGATIVE NEGATIVE = COCAURN) URN CANNABINOIDS (test NEGATIVE NEGATIVE code = CANNABURN) URN AMPHETAMINE (test NEGATIVE NEGATIVE code = AMPHETURN) URN BARBITURATE (test NEGATIVE NEGATIVE code = BARBITURN) URN BENZODIAZEPINE NEGATIVE NEGATIVE Cut-off v alue:200 (test code = BENZOURN) ng/mL URN OPIATES (test code NEGATIVE NEGATIVE Cut-o ff value:2000 = OPIATURN) ng/mL URN PHENCYCLIDINE (PCP) NEGATIVE NEGATIVE Cuto ffs:Barbiturates (test code = PHENCURN) 200 ng/mLBenzodiaze pines 200 ng/mLTHC Cannabinoids 50 ng/mLOpiates(Mo rphine) 2000 ng/mLAmphe tamine 1000 ng/mLCocai ne 300 ng/mLPCP phency clidine 25 ng/mL Unconf irmed screening resul ts shouldnot be us ed for non-medical pur poses. HGBA1C%2021-11-10 11:32:00 Test Item Value Reference Range Interpretation Comments HGBA1C% (test code = HGBA1C%) 5.3 %A1C 4.8-6.0 N URINALYSIS [id number] 11:28:00 Test Item Value Reference Range Interpretation Comments UA COLOR (test code = COLU) YELLOW YEL/STRAW UA APPEARANCE (test code = APPU) SL CLOUDY CLEAR UA GLUCOSE DIPSTICK (test code = NEGATIVE NEGATIVE DGLUU) UA BILIRUBIN DIPSTICK (test code NEGATIVE NEGATIVE = BILU) UA KETONE DIPSTICK (test code = NEGATIVE NEGATIVE KETU) UA SPECIFIC GRAVITY (test code = 1.010 1.005-1.030 N SGU) UA BLOOD DIPSTICK (test code = NEGATIVE NEGATIVE MOY) UA PH DIPSTICK (test code = JOSE LUIS) 7.0 5.0-7.0 N UA PROTEIN DIPSTICK (test code = NEGATIVE NEGATIVE PROU) UA UROBILINIOGEN DIPSTICK (test 0.2 mg/dL 0.2-1.0 code = URO) UA NITRITE DIPSTICK (test code = NEGATIVE NEGATIVE ANA) UA LEUKOCYTE ESTERASE DIPSTICK 3+ NEGATIVE A (test code = LEUU) UA RBC (test code = RBCU) 0-3 RBC/HPF 0-3 UA WBC NO REFLEX (test code = 4-9 WBC/HPF 0-3 A WBCUCL) UA BACTERIA (test code = BACU) TRACE /HPF NONE SEEN UA SQUAMOUS CELLS (test code = 6-10 /HPF NONE SEEN A SQU) UA MUCUS (test code = MUCU) TRACE /LPF NONE SEEN AMNISURE (ROM) [id number] 01:26:00 Test Item Value Reference Range Interpretation Comments AMNISURE (ROM) TEST (test code = NEGATIVE NEGATIVE AMNI) URINALYSIS [id number] 01:12:00 Test Item Value Reference Range Interpretation Comments UA COLOR (test code = COLU) YELLOW YEL/STRAW UA APPEARANCE (test code = CLEAR CLEAR APPU) UA GLUCOSE DIPSTICK (test NEGATIVE NEGATIVE code = DGLUU) UA BILIRUBIN DIPSTICK (test NEGATIVE NEGATIVE code = BILU) UA KETONE DIPSTICK (test NEGATIVE NEGATIVE code = KETU) UA SPECIFIC GRAVITY (test 1.005 1.005-1.030 N code = SGU) UA BLOOD DIPSTICK (test NEGATIVE NEGATIVE code = MYO) UA PH DIPSTICK (test code = 7.0 5.0-7.0 N JOSE LUIS) UA PROTEIN DIPSTICK (test NEGATIVE NEGATIVE code = PROU) UA UROBILINIOGEN DIPSTICK 0.2 mg/dL 0.2-1.0 (test code = URO) UA NITRITE DIPSTICK (test NEGATIVE NEGATIVE code = ANA) UA LEUKOCYTE ESTERASE 1+ NEGATIVE A DIPSTICK (test code = LEUU) UA RBC (test code = RBCU) NONE SEEN RBC/HPF 0-3 UA WBC NO REFLEX (test code 4-9 WBC/HPF 0-3 A = WBCUCL) UA BACTERIA (test code = NONE SEEN /HPF NONE SEEN BACU) UA SQUAMOUS CELLS (test 0-5 /HPF NONE SEEN code = SQU) UA MUCUS (test code = MUCU) TRACE /LPF NONE SEEN - MRI PELVIS W/O [id number] 00:00:00 [facility] : 2000 Sex: F FAX: Jany Chilel MD [phone] [place]: St: REG Name: CARLOS MISHRA [facility] : 2000 Age/S: 21/F [address] [place] [address] Unit #: [id number] Loc: [place] [address] Phys: Jany Hammond MD Acct: [id number] Dis Date: Status: REG CLI PHONE #: [phone] Exam Date: 04/23/2021 1548 FAX #: [phone] Reason: 536.8-K30 DYSPEPSIA EXAMS: CPT CODE: [id number] MRI PELVIS W/O CON 61161 PROCEDURE INFORMATION: Exam: MR Pelvis Without Contrast Exam date and time: 04/23/2021 3:18 PM Age: 21 years old Clinical indication: Abdominal pain and pelvic pain; Lower abdomen; Additional info: 536.8-k30 dyspepsia TECHNIQUE: Imaging protocol: Magnetic resonance images of the pelvis without intravenous contrast. COMPARISON: CT ABD PELVIS W/CONT 01/03/2021 10:58 AM FINDINGS: Gravid uterus is identified, current exam is not tailored for the evaluation of anatomy. Prominence of the posterior myometrium may related to contraction suggest follow-up with ultrasound. Normal signal of the cervical stroma. The adnexa appear unremarkable. No enlarged lymph nodes. No pelvic ascites. No pelvic fluid collection. No dilated loops of bowel. The appendix measures approximately 5.6 mm without evidence for periappendiceal fat stranding or fluid. Abdominal aorta is normal in caliber. No hydronephrosis. Normal bone marrow signal. IMPRESSION: No significant abnormality at 1653 Reported and signed by: Lilia Edwards M.D. CC: Jany Hammond MD Technologist: RT Edwin(R)(MR) Trnscrd Date/Time/By: 04/23/2021 (1652) : By: [email or web address] [facility] Print D/T: S: 04/23/2021 (1652) PAGE 1 Signed Report- US ABDOMEN COMPLETE 2021-04-23 00:00:00 [facility] 2000 Sex: F Name: CARLOS MISHRA [facility] : 2000 Age/S: 21 / F [address] [place] [address] Unit #: [id number] Loc: [facility] [address] Phys: Jany Hammond MD Acct: [id number] Dis Date: Status: REGCLI PHONE #: [phone] Exam Date: 04/23/2021 1420 FAX #: [phone] Reason: DYSPEPSIA,BLOATINGSYMPTOM EXAMS: CPT CODE: [id number] US ABDOMEN COMPLETE [id number] PROCEDURE INFORMATION: Exam: US Abdomen Complete Exam date and time: 04/23/2021 2:03 PM Age: 21 years old Clinical indication: Bloating; ; Additional info: Dyspepsia, bloating symptom TECHNIQUE: Imaging protocol: Real-time ultrasoundof the abdomen with image documentation. COMPARISON: US DUP AB/PEL/SC COMP 03/07/2021 9:22 PM FINDINGS: Liver: Normal echogenicity. No mass. Main portal vein is patent and antegrade. Gallbladder: No gallstones. There is no gallbladder wall thickening. Common bile duct: No dilation. Pancreas: Visualizedpancreas is unremarkable. The tail evaluation is limited due to bowel gas. Right kidney: Normal echogenicity. No mass. No hydronephrosis. Measures 10.7 cm. Left kidney: Normal echogenicity. No mass. Nohydronephrosis. Measures 9.4 cm. Spleen: Normal. Aorta: Visualized portions are unremarkable. Inferior vena cava: Visualized portions are unremarkable. IMPRESSION: No acute findings. at 1515 Reported and signed by: Melinda Benjamin D.O. CC: Jany Hammond MD Technologist: José Osullivan RDMS() Trnscb Date/Time: 04/23/2021 (1515) [email or web address] Orig Print D/T: S: 04/23/2021 (1516) Probe: PAGE 1 Signed ReportBASIC METABOLIC [id number] 13:46:00 Test Item Value Reference Range Interpretation Comments SODIUM (test code = NA) 139 mEq/L 134-147 N POTASSIUM (test code = 3.8 mEq/L 3.4-5.0 N K) CHLORIDE (test code = 109 mEq/L 100-108 H CL) CARBON DIOXIDE (test 25 mEq/l 21-33 N code = CO2) ANION GAP (test code = 9 0-20 N GAP) GLUCOSE (test code = 77 mg/dL 70-110 N GLU) BLOOD UREA NITROGEN 7 mg/dL 7-18 N (test code = BUN) GLOMERULAR FILTRATION 127.5 110-120 H Units of measure = RATE (test code = GFR) ml/mi n/1.73 m2 CREATININE (test code = 0.6 mg/dL 0.6-1.3 N CREAT) CALCIUM (test code = 8.6 mg/dL 8.0-10.5 N CA) HEPATIC FUNCTION [id number] 13:46:00 Test Item Value Reference Range Interpretation Comments TOTAL PROTEIN (test code = PROT) 7.0 g/dL 6.4-8.2 N ALBUMIN (test code = ALB) 3.70 g/dL 3.4-5.0 N BILIRUBIN TOTAL (test code = BILT) 0.60 mg/dL 0.0-1.0 N BILIRUBIN DIRECT (test code = 0.20 MG/DL 0.0-0.30 N BILD) BILIRUBIN INDIRECT (test code = 0.40 MG/DL BILIND) SGOT/AST (test code = AST) 17 IUnit/L 15-37 N SGPT/ALT (test code = ALT) 12 IUnit/L 30-65 L ALKALINE PHOSPHATASE TOTAL (test 84 IUnit/L 20-125 N code = ALKP) BASIC METABOLIC [id number] 13:43:00 Test Item Value Reference Range Interpretation Comments SODIUM (test code = NA) 139 mEq/L 134-147 N POTASSIUM (test code = 3.8 mEq/L 3.4-5.0 N K) CHLORIDE (test code = 109 mEq/L 100-108 H CL) CARBON DIOXIDE (test 25 mEq/l 21-33 N code = CO2) ANION GAP (test code = 9 0-20 N GAP) GLUCOSE (test code = 77 mg/dL 70-110 N GLU) BLOOD UREA NITROGEN 7 mg/dL 7-18 N (test code = BUN) GLOMERULAR FILTRATION 127.5 110-120 H Units of measure = RATE (test code = GFR) ml/mi n/1.73 m2 CREATININE (test code = 0.6 mg/dL 0.6-1.3 N CREAT) CALCIUM (test code = 8.6 mg/dL 8.0-10.5 N CA) HEPATIC FUNCTION [id number] 13:43:00 Test Item Value Reference Range Interpretation Comments TOTAL PROTEIN (test code = PROT) g/dL 6.4-8.2 ALBUMIN (test code = ALB) g/dL 3.4-5.0 BILIRUBIN TOTAL (test code = BILT) mg/dL 0.0-1.0 BILIRUBIN DIRECT (test code = BILD) MG/DL 0.0-0.30 SGOT/AST (test code = AST) IUnit/L 15-37 SGPT/ALT (test code = ALT) IUnit/L 30-65 ALKALINE PHOSPHATASE TOTAL (test IUnit/L 20-125 code = ALKP) CBC W/AUTO [id number] 12:26:00 Test Item Value Reference Range Interpretation Comments WHITE BLOOD CELL (test code = 7.6 x10 3/uL 4.5-11.0 N WBC) RED BLOOD CELL (test code = 5.16 x10 6/uL 3.54-5.02 H RBC) HEMOGLOBIN (test code = HGB) 12.8 g/dL 11.0-15.0 N HEMATOCRIT (test code = HCT) 39.7 % 33.0-45.0 N MEAN CELL VOLUME (test code = 76.9 fL 81.0-99.0 L MCV) MEAN CELL HGB (test code = MCH) 24.8 pg 27.0-33.0 L MEAN CELL HGB CONCETRATION 32.2 g/dL 33.0-37.0 L (test code = MCHC) RED CELL DISTRIBUTION WIDTH CV 14.7 % 11.5-14.5 H (test code = RDW) RED CELL DISTRIBUTION WIDTH SD 40.7 fL 37.0-54.0 N (test code = RDW-SD) PLATELET COUNT (test code = 312 x10 3/uL 150-400 N PLT) MEAN PLATELET VOLUME (test code 11.8 fL 7.0-9.0 H = MPV) NEUTROPHIL % (test code = NT%) 74.3 % 56.0-77.0 N IMMATURE GRANULOCYTE % (test 0.3 % 0.0-2.0 N code = IG%) LYMPHOCYTE % (test code = LY%) 17.4 % 14.0-32.0 N MONOCYTE % (test code = MO%) 5.5 % 4.8-9.0 N EOSINOPHIL % (test code = EO%) 2.0 % 0.3-3.7 N BASOPHIL % (test code = BA%) 0.5 % 0.0-2.0 N NUCLEATED RBC % (test code = 0.0 % 0-0 N NRBC%) NEUTROPHIL # (test code = NT#) 5.65 x10 3/uL 2.0-7.6 N IMMATURE GRANULOCYTE # (test 0.02 x10 3/uL 0.00-0.03 N code = IG#) LYMPHOCYTE # (test code = LY#) 1.32 x10 3/uL 1.0-3.8 N MONOCYTE # (test code = MO#) 0.42 x10 3/uL 0.1-0.8 N EOSINOPHIL # (test code = EO#) 0.15 x10 3/uL 0.0-0.2 N BASOPHIL # (test code = BA#) 0.04 x10 3/uL 0.0-0.2 N NUCLEATED RBC # (test code = 0.00 x10 3/uL 0.0-0.1 N NRBC#) MANUAL DIFF REQUIRED (test code NO = MDIFF) CBC W/AUTO [id number] 12:25:00 Test Item Value Reference Range Interpretation Comments WHITE BLOOD CELL (test code = x10 3/uL 4.5-11.0 WBC) RED BLOOD CELL (test code = RBC) x10 6/uL 3.54-5.02 HEMOGLOBIN (test code = HGB) 12.8 g/dL 11.0-15.0 N HEMATOCRIT (test code = HCT) 39.7 % 33.0-45.0 N MEAN CELL VOLUME (test code = fL 81.0-99.0 MCV) MEAN CELL HGB (test code = MCH) pg 27.0-33.0 MEAN CELL HGB CONCETRATION (test g/dL 33.0-37.0 code = MCHC) RED CELL DISTRIBUTION WIDTH CV % 11.5-14.5 (test code = RDW) PLATELET COUNT (test code = PLT) 312 x10 3/uL 150-400 N NEUTROPHIL % (test code = NT%) % 56.0-77.0 LYMPHOCYTE % (test code = LY%) % 14.0-32.0 NEUTROPHIL # (test code = NT#) x10 3/uL 2.0-7.6 LYMPHOCYTE # (test code = LY#) x10 3/uL 1.0-3.8 MANUAL DIFF REQUIRED (test code = MDIFF) ECG 12 [id number] 02:47:30 Test Item Value Reference Range Interpretation Comments Ventricular rate (test code = 253) Atrial rate (test code = 255) KS interval (test code = 266) QRSD interval (test code = 260) QT interval (test code = 264) QTC interval (test code = 265) P axis 1 (test code = 267) QRS axis 1 (test code = 268) T wave axis (test code = 270) EKG impression (test Sinus code = 273) tachycardia-Rightward axis-Borderline ECG-No previous ECGs available-Electronica lly Signed By Vincenzo Stone MD ([id number]) on 03/31/2021 9:47:28 PM [facility] [id number] 02:47:30 Test Item Value Reference Range Interpretation Comments Ventricular rate (test code = 253) Atrial rate (test code = 255) KS interval (test code = 266) QRSD interval (test code = 260) QT interval (test code = 264) QTC interval (test code = 265) P axis 1 (test code = 267) QRS axis 1 (test code = 268) T wave axis (test code = 270) EKG impression (test Sinus code = 273) tachycardia-Rightward axis-Borderline ECG-No previous ECGs available-Electronica lly Signed By Vincenzo Stone MD ([id number]) on 03/31/2021 9:47:28 PM [facility] Single Less Than 14 [id number] 23:51:53EXAM: US SINGLE LESS THAN 14 WEEKS CLINICAL INDICATIONS: Ectopic TECHNIQUE: Pelvic ultrasound performed. Transabdominal and transvaginal images are obtained. COMPARISON: None IMPRESSION: There is an intrauterine identified. By ultrasonographic dating criteria, is at six weeks three days with an ILEANA of 11/18/2019. There is a tiny 4 mm subchorionic hemorrhage. heart rate is 138 bpm. Yolk sac measures 0.2 cm. [place]-rump length is 0.8 cm. Gestational sac sizeis 1.8 cm. Uterus measures 8.0 x 4.4 x 5.3 cm. Right and left ovaries are within normal limits. Right ovary measures 4.2 x 2.1 x 2.4 cm and left ovary measures 2.9 x 2.9 x 1.9 cm. Right hemorrhagic corpus luteum cyst is seen. Left ovarian dominant follicle or corpus luteum is seen. No free fluid seen in the pelvis. Interface, Radiology Results 03/28/2021 6:54 PM CDT EXAM: US SINGLE LESS THAN 14 WEEKSCLINICAL INDICATIONS: Ectopic pregnancyTECHNIQUE: Pelvic ultrasound performed. Transabdominal and transvaginal images are obtained.COMPARISON: NoneIMPRESSION: There is an intrauterine identified. By ultrasonographic dating criteria, is at six weeks three days with an ILEANA of 11/18/2019. There is a tiny 4 mm subchorionic hemorrhage. heart rate is 138 bpm.Yolk sac measures 0.2 cm.[place]-rump lengthis 0.8 cm.Gestational sac size is 1.8 cm.Uterus measures 8.0 x 4.4 x 5.3 cm.Right and left ovaries are within normal limits. Right ovary measures 4.2 x 2.1 x 2.4 cm and left ovary measures 2.9 x 2.9 x 1.9 cm. Right hemorrhagic corpus luteum cyst is seen. Left ovarian dominant follicle or corpus luteumis seen.No free fluid seen in the pelvis[facility] 14 [id number] 23:51:53EXAM: US SINGLE LESS THAN 14 WEEKS CLINICAL INDICATIONS: Ectopic TECHNIQUE: Pelvic ultrasound performed. Transabdominal and transvaginal images are obtained. COMPARISON: None IMPRESS ION: There is an intrauterine identified. By ultrasonographic dating criteria, is at six weeks three days with an ILEANA of 11/18/2019. There is a tiny 4 mm subchorionic hemorrhage. heart rate is 138 bpm. Yolk sac measures 0.2 cm. [place]-rump length is 0.8 cm. Gestational sac sizeis 1.8 cm. Uterus measures 8.0 x 4.4 x 5.3 cm. Right and left ovaries are within normal limits. Right ovary measures 4.2 x 2.1 x 2.4 cm and left ovary measures 2.9 x 2.9 x 1.9 cm. Right hemorrhagic corpus luteum cyst is seen. Left ovarian dominant follicle or corpus luteum is seen. No free fluid seen in the pelvis. Interface, Radiology Results 03/28/2021 6:54 PM CDT EXAM: US SINGLE LESS THAN 14 WEEKSCLINICAL INDICATIONS: Ectopic pregnancyTECHNIQUE: Pelvic ultrasound performed. Transabdominal and transvaginal images are obtained.COMPARISON: NoneIMPRESSION: There is an intrauterine identified. By ultrasonogr aphic dating criteria, is at six weeks three days with an ILEANA of 11/18/2019. There is a tiny 4 mm subchorionic hemorrhage. heart rate is 138 bpm.Yolk sac measures 0.2 cm.[place]-rump lengthis 0.8 cm.Gestational sac size is 1.8 cm.Uterus measures 8.0 x 4.4 x 5.3 cm.Right and left ovaries are within normal limits. Right ovary measures 4.2 x 2.1 x 2.4 cm and left ovary measures 2.9 x 2.9 x 1.9 cm. Right hemorrhagic corpus luteum cyst is seen. Left ovarian dominant follicle or corpus luteumis seen.No free fluid seen in the pelvis. [facility] ED Preliminary Interpretation - Not an [id number] 20:39:29 Test Item Value Reference Range Interpretation Comments QAMAR (test code = QAMAR) Lab Interpretation (test code = Abnormal 34247-8) [facility] Preliminary Interpretation - Not an [id number] 20:39:29 Test Item Value Reference Range Interpretation Comments QAMAR (test code = QAMAR) Lab Interpretation (test code = Abnormal 74258-8) [facility] AB/PEL/SC [id number] 21:51:00 [facility] ([facility]Name: CARLOS MISHRA : 2000 Sex: F [facility]: [facility] 2000 Age/S: 20 / F Erin Antoine pallaviUnit #: [id number] Loc: TAI Jain [address] Phys: Fabiola Nelson NP Acct: [id number] Dis Date: Status: REG ER PHONE #: [phone] Exam Date: 03/07/20212143 FAX #: [phone] Reason: abd pain EXAMS: CPT CODE: [id number] DUP AB/PEL/SC COMP [id number] EXAM: Transvaginal and transabdominal pelvic ultrasound LOCATION: C3 HISTORY: abd pain COMPARISON: None TECHNIQUE: Transabdominal and endovaginal ultrasound was performed. Spectral Doppler and color Doppler sonographic analysis of the adnexa was performed. FINDINGS: The uterus measures 6.8 x 3.9 x 4.3 cm. Endometrial stripe measures 1 cm. No myometrial masses are seen. The right ovary measures 3.4 x 3.1 x 2.7 cm. The left ovary measures 3 x 2 x 1.7 cm.Bilateral ovarian blood flow is documented by pulse wave Doppler. Trace amount of simple free pelvicfluid. IMPRESSION: No intrauterine identified. This may represent an early versus ectopic . Recommend continued follow-up with sonography and serial beta-hCG. Preserved blood flow to both ovaries. at 2151 Reported and signed by: Charles Amador M.D. CC: Medardo Delgado MD; Fabiola Nelson NP Technologist: CRISTINA BELTRAN Trnscb Date/Time: 03/07/2021 (2150) [email or web address] Orig Print D/T: S: 03/07/2021 (2153) Probe: PAGE 1 Signed Report- US PREG 1ST [id number] 21:51:00 [facility])Name: CARLOS MISHRA : 2000 Sex: F Name: CARLOS MISHRA [facility] : 2000 Age/S: 20 / F Erin Antoine pallaviUnit #: [id number] Loc: TAI Jain [address] Phys: Fabiola Nelson NP Acct: [id number] Dis Date: Status: REG ER PHONE #: [phone] Exam Date: 03/07/20212143 FAX #: [phone] Reason: abd pain EXAMS: CPT CODE: [id number] US PREG 1ST TRIMTR 19914 EXAM: Transvaginal and transabdominal pelvic ultrasound LOCATION: C3 HISTORY: abd pain COMPARISON: None TECHNIQUE: Transabdominal and endovaginal ultrasound was performed. Spectral Doppler and color Doppler sonographic analysis of the adnexa was performed. FINDINGS: The uterus measures 6.8 x 3.9 x 4.3 cm. Endometrial stripe measures 1 cm. No myometrial masses are seen. The right ovary measures 3.4 x 3.1 x 2.7 cm. The left ovary measures 3 x 2 x 1.7 cm. Bilateral ovarian blood flow is documented by pulse wave Doppler. Trace amount of simple free pelvic fluid. IMPRESSION: No intrauterine identified. This may represent an early versus ectopic . Recommend continued follow-up with sonography and serial beta-hCG. Preserved blood flowto both ovaries. at 2151 Reported and signed by: Charles Amador M.D. CC: Medardo Delgado MD; Fabiola Nelson NP Technologist: CRISTINA BELTRAN Trnscb Date/Time: 03/07/2021 (2150) [email or web address] Orig Print D/T: S: 03/07/2021 (2153) Probe: PAGE 1 Signed Report- US PREG UT [id number] 21:51:00 [facility] ([facility]Name: CARLOS MISHRA : 2000 Sex: F Name: CARLOS MISHRA [facility] : 2000 Age/S: 20 / F [address] yUnit #: [id number] Loc: TAI Jain [address] Phys: Fabiola Nelson [employer] LEAD Acct: [id number] Dis Date: Status: REG ER PHONE #: [phone] Exam Date: 03/07/20212143 FAX #: [phone] Reason: abd pain EXAMS: CPT CODE: [id number] US PREG UT TRANSVAGINAL 84522 EXAM: Transvaginal and transabdominal pelvic ul trasound LOCATION: C3 HISTORY: abd pain COMPARISON: None TECHNIQUE: Transabdominal and endovaginal ultrasound was performed. Spectral Doppler and color Doppler sonographic analysis of the adnexa was performed. FINDINGS: The uterus measures 6.8 x 3.9 x 4.3 cm. Endometrial stripe measures 1 cm. No myome trial masses are seen. The right ovary measures 3.4 x 3.1 x 2.7 cm. The left ovary measures 3 x 2 x 1.7 cm. Bilateral ovarian blood flow is documented by pulse wave Doppler. Trace amount of simple freepelvic fluid. IMPRESSION: No intrauterine identified. This may represent an early versus ectopic . Recommend continued follow-up with sonography and serial beta-hCG. Preserved blood flow to both ovaries. at 2151 Reported and signed by: Cahrles Amador M.D. CC: Medardo Delgado MD; Fabiola Nelson NP Technologist: CRISTINA BELTRAN Trnscb Date/Time: 03/07/2021 (2150) [email or web address] Orig Print D/T: S: 03/07/2021 (2153) P nae: [id number] PAGE 1 Signed ReportHCG SERUM [id number] 21:39:00 Test Item Value Reference Range Interpretation Comments HCG SERUM BETA 58.0 mIU/mL 0-3 H Interfering s ubstances (test code = HCG) present in the serum of somepatients ma y cause a false-positive result in this assay.Ques tionable elevations in s [place] hCG should be confi rmedwith a urine hCG. Susp ected Trophoblastic N eoplasms shouldnot be di agnosed based on serun hCG/beta hCG alone. They must be confirmed by cl inical history and tis sylvester diagnosis.INTER PRETATION: B-HCG LEVELS <5 SHOULD BE CONSIDERED " NEGATIVE." *WHEN BODERLINE RESULTS ARE ENCOUNTERED ,PATIENT SAMPLESSHOULD B E REDRAWN 48 HOURS. 0-1 WEEKS AFTER CONCEPTIO N 5-50 MIU/ML1-2 WEEKS AFTER CONCEPTION 50-5 00 MIU/ML2-3 WEEKS AFTER CONCEPTION 100 -5,000 MIU/ML3-4 WEEKS AFTER CONCEPTION 500- 10,000 MIU/ML4-5 WEEKS AFTER CONCEPTION 1000 -50,000 MIU/ML5-6 WEEKS AFTER CONCEPTION 10,0 00-100,000 MIU/ML6-8 WEEKS AFTER CONCEPTION 15,0 00- 200,000 MIU/ML2 -3 MONTHS AFTER CONCEPTIO N 10,000-100,000 MIU/ML URINALYSIS [id number] 21:35:00 Test Item Value Reference Range Interpretation Comments UA COLOR (test code = COLU) YELLOW YELLOW UA APPEARANCE (test code = CLEAR CLEAR APPU) UA GLUCOSE DIPSTICK (test NEGATIVE mg/dL NEGATIVE code = DGLUU) UA BILIRUBIN DIPSTICK (test NEGATIVE mg/dL NEGATIVE code = BILU) UA KETONE DIPSTICK (test NEGATIVE mg/dL NEGATIVE code = KETU) UA SPECIFIC GRAVITY (test 1.026 1.001-1.035 code = SGU) UA BLOOD DIPSTICK (test code Negative mg/dL NEGATIVE = MOY) UA PH DIPSTICK (test code = 5.5 5.0-8.0 JOSE LUIS) UA PROTEIN DIPSTICK (test 10 (Trace) mg/dL NEGATIVE A code = PROU) UA UROBILINIOGEN DIPSTICK Normal mg/dL NEGATIVE (test code = URO) UA NITRITE DIPSTICK (test NEGATIVE NEGATIVE code = ANA) UA LEUKOCYTE ESTERASE W NEGATIVE Beckie/uL NEGATIVE REFLEX (test code = LEUUR) UA WBC (test code = WBCU) 0-5 per HPF 0-5 UA RBC (test code = RBCU) 0-2 #/HPF 0-5 UA EPITHELIAL CELLS (test FEW per HPF FEW code = EPIU) UA BACTERIA (test code = NONE SEEN #/HPF NONE BACU) UA MUCUS (test code = MUCU) FEW #/LPF FEW Urine Source? Clean CatchBASIC METABOLIC [id number] 21:18:00 Test Item Value Reference Range Interpretation Comments SODIUM (test code = 136 mmol/L 136-145 N NA) POTASSIUM (test code 3.5 mmol/L 3.5-5.1 N = K) CHLORIDE (test code 107.0 mmol/L 98-107 N = CL) CARBON DIOXIDE (test 24.0 mmol/L 21-32 N code = CO2) ANION GAP (test code 8.5 10-20 L = GAP) GLUCOSE (test code = 92 mg/dL 74-106 N GLU) BLOOD UREA NITROGEN 7 mg/dL 7-18 N (test code = BUN) GLOMERULAR > 60 mL/min See_Comment Estimated GFR b y FILTRATION RATE using Modifi ed MDRD (test code = GFR) formula.Ch ronic kidney disease is defined as eith er kidney damageor GFR <60 mL/min/1.73 m2 for >3 months. [Automated mess age] The system Porch generated this result transmitted ref erence range: >=60. Th e reference range was not used to int erpret this result as normal/abnormal . CREATININE (test 0.70 mg/dL 0.55-1.02 N Note bray ge in code = CREAT) reference rang e due to change in reagent. BUN/CREATININE RATIO 10.6 10-20 N (test code = BUN/CREA) CALCIUM (test code = 8.4 mg/dL 8.5-10.1 L CA) HEPATIC FUNCTION [id number] 21:18:00 Test Item Value Reference Range Interpretation Comments TOTAL PROTEIN (test code = PROT) 7.8 gram/dL 6.4-8.2 N ALBUMIN (test code = ALB) 4.5 g/dL 3.4-5.0 N GLOBULIN (test code = GLOB) 3.3 gram/dL 2.7-4.2 N ALBUMIN/GLOBULIN RATIO (test code 1.4 0.75-1.50 N = A/G) BILIRUBIN TOTAL (test code = 1.10 mg/dL 0.0-1.0 H BILT) BILIRUBIN DIRECT (test code = 0.40 mg/dL 0.0-0.20 H BILD) SGOT/AST (test code = AST) 22 IUnit/L 15-37 N SGPT/ALT (test code = ALT) 17 IUnit/L 12-78 N ALKALINE PHOSPHATASE TOTAL (test 117 IUnit/L 37-107 H code = ALKP) [id number] 21:18:00 Test Item Value Reference Range Interpretation Comments LIPASE (test code = LIP) 40 U/L 12.00-57.00 N HCG SERUM [id number] 21:18:00 Test Item Value Reference Range Interpretation Comments HCG SERUM QUAL (test POSITIVE NEGATIVE A This HC GQL test is NOT code = HCGQL) applicable for MALE patients.Check with nurse about probable order error.If Tumor Marker Test needed, nu rse should order test "HCG TU"(Test #[id number])---- - BASIC METABOLIC [id number] 21:11:00 Test Item Value Reference Range Interpretation Comments SODIUM (test code = NA) mmol/L 136-145 POTASSIUM (test code = mmol/L 3.5-5.1 K) CHLORIDE (test code = mmol/L 98-107 CL) CARBON DIOXIDE (test mmol/L 21-32 code = CO2) ANION GAP (test code = 10-20 GAP) GLUCOSE (test code = mg/dL 74-106 GLU) BLOOD UREA NITROGEN mg/dL 7-18 (test code = BUN) GLOMERULAR FILTRATION mL/min See_Comment [Auto mated message] RATE (test code = GFR) The s [employer] which generated this result transmitted ref erence range: >=60. Th e reference range was not used to interpr et this result as normal/abnormal . CREATININE (test code = mg/dL 0.55-1.02 CREAT) BUN/CREATININE RATIO 10-20 (test code = BUN/CREA) CALCIUM (test code = mg/dL 8.5-10.1 CA) HEPATIC FUNCTION [id number] 21:11:00 Test Item Value Reference Range Interpretation Comments TOTAL PROTEIN (test code = PROT) gram/dL 6.4-8.2 ALBUMIN (test code = ALB) g/dL 3.4-5.0 GLOBULIN (test code = GLOB) gram/dL 2.7-4.2 ALBUMIN/GLOBULIN RATIO (test code = 0.75-1.50 A/G) BILIRUBIN TOTAL (test code = BILT) mg/dL 0.0-1.0 BILIRUBIN DIRECT (test code = BILD) mg/dL 0.0-0.20 SGOT/AST (test code = AST) IUnit/L 15-37 SGPT/ALT (test code = ALT) IUnit/L 12-78 ALKALINE PHOSPHATASE TOTAL (test IUnit/L 37-107 code = ALKP) [id number] 21:11:00 Test Item Value Reference Range Interpretation Comments LIPASE (test code = LIP) U/L 12.00-57.00 HCG SERUM [id number] 21:11:00 Test Item Value Reference Range Interpretation Comments HCG SERUM QUAL (test POSITIVE NEGATIVE A This HC GQL test is NOT code = HCGQL) applicable for MALE patients.Check with nurse about probable order error.If Tumor Marker Test needed, nu rse should order test "HCG TU"(Test #550.13555)---- - CBC W/O [id number] 20:49:00 Test Item Value Reference Range Interpretation Comments WHITE BLOOD CELL (test code = 14.9 K/mm3 4.5-12.5 H WBC) RED BLOOD CELL (test code = 5.23 mill/mm3 3.7-5.2 H RBC) HEMOGLOBIN (test code = HGB) 13.2 gram/dL 11.5-15.5 N HEMATOCRIT (test code = HCT) 42.1 % 36.0-46.0 N MEAN CELL VOLUME (test code = 80.5 fL 80-98 N MCV) MEAN CELL HGB (test code = MCH) 25.2 picogram 27.0-33.0 L MEAN CELL HGB CONCETRATION 31.4 gram/dL 33.0-36.0 L (test code = MCHC) RED CELL DISTRIBUTION WIDTH 14.6 % 11.6-16.2 N (test code = RDW) PLATELET COUNT (test code = 318 K/mm3 150-450 N PLT) MEAN PLATELET VOLUME (test code 10.3 fL 6.7-11.0 N = MPV) - XR ABDOMEN AP 1 [id number] 19:32:00 [facility])Name: CARLOS MISHRA : 2000 Sex: F FAX: Fabiola Nelson NP [place]: B St: PRE Name: CARLOS MISHRA [facility] : 2000 Age/S: 20/F Erin Rodriguez Unit #: [id number] Loc: TAI Bhakta [address] Phys: Fabiola Nelson NP Acct: [id number] Dis Date: Status: PRE ER PHONE #: [phone] Exam Date: 03/07/2021 1926 FAX #: [phone] Reason: abdominal pain EXAMS: CPT CODE: [id number] XR ABDOMEN AP 1 V [id number] HISTORY: abdominal painTECHNIQUE: AP abdomen x-ray COMPARISON: None FINDINGS: Nonobstructive bowel gas pattern. Mild distalcolon fecal retention. No intra- abdominal mass effect. No abnormal calcifications are observed. Thoracolumbar dextroscoliosis. IMPRESSION: No radiographic evidence of acute intra-abdominal process. LOCATION: LP at 1932 Reported and signed by: Michelle Renee D.O. CC: Fabiola Nelson NP Technologist: Juhi Douglas(R) Trnscrd Date/Time/By: 03/07/2021 (1931) : By: [email or web address] Orig Print D/T: S: 03/07/2021 (1935) PAGE 1 Signed ReportNovel Coronavirus 09:54:00 Test Item Value Reference Range Interpretation Comments Novel Coronavirus Negative Negative Positive r esults are 2019 Inhouse (test indicativ e of the presence code = [id number]) ofSARS-CoV -2 RNA, clinical correlation wit h patient historyand othe r diagnostic info rmation is necessary to determinepatien t infection status. Positiv e results do not rule out bacterial infection or co -infection with other viru ses. Negative result s do not preclude SARS-C oV-2 infection andsh ould not be used as the jenifer e basis for patient managementdecis ions. Negative result s must be combined with otherclinical observations, p atient history, and epidemiological information . Detection of SARS-CoV-2 RNA may be affe cted bysample collec tion methods, storag e conditions, and /or stageof infection. Jessy l RNA mutations, vacc inations, antiviraltherap eutics, antibiotics, chemotherapeuti c orimmunosuppres minnie drugs have not been e valuated for effectson d etection. Results are for the identification of SARS-CoV-2 RNA usingreal-time (RT) polymerase dmitriy n reaction (PCR) technolog yfor the qualitative det ection of nucleic acids f rom [id number] v irus and diagnosis of SA RS-CoV-2 virusinfection. It is an Emergency Use Authorization ( EUA) testauthorized by the U.S. FDA. Novel Coronavirus 09:54:00 Test Item Value Reference Range Interpretation Comments Novel Coronavirus Negative Negative Positive r esults are 2019 Inhouse (test indicativ e of the presence code = [id number]) ofSARS-CoV -2 RNA, clinical correlation wit h patient historyand othe r diagnostic info rmation is necessary to determinepatien t infection status. Positiv e results do not rule out bacterial infection or co -infection with other viru ses. Negative result s do not preclude SARS-C oV-2 infection andsh ould not be used as the jenifer e basis for patient managementdecis ions. Negative result s must be combined with otherclinical observations, p atient history, and epidemiological information . Detection of SARS-CoV-2 RNA may be affe cted bysample collec tion methods, storag e conditions, and /or stageof infection. Jessy l RNA mutations, vacc inations, antiviraltherap eutics, antibiotics, chemotherapeuti c orimmunosuppres minnie drugs have not been e valuated for effectson d etection. Results are for the identification of SARS-CoV-2 RNA usingreal-time (RT) polymerase dmitriy n reaction (PCR) technolog yfor the qualitative det ection of nucleic acids f rom [id number]-[id number]-2 v irus and diagnosis of SA RS-CoV-2 virusinfection. It is an Emergency Use Authorization ( EUA) testauthorized by the U.S. FDA. UR HCG [id number] 13:25:00 Test Item Value Reference Range Interpretation Comments UR HCG QUAL (test NEGATIVE This HCGQL test is NOT code = HCGQLU) applicable fo r MALE patients.Check with nurse about probable order error.If Tumor Marker Test needed, nu rse should order test "HCG TU"(Test #550.89433)---- - CT ABDOMEN PELVIS W [id number] 16:21:48 1. Multiple prominent mesenteric lymph nodes in the right lower quadrantcan be seen with mesentericadenitis. 2. Retroverted uterus with no focal lesions. A left adnexal cyst measures3.8 cm. Recommendfurther evaluation with pelvic ultrasound. Preliminary Report Dictated by Resident: Ajith Kemp I, Jessica Sheets MD., have reviewed this study and agree with theabove report.[facility], Radiant Results Inft User - 01/29/2021 11:22 AM CDTEXAM: CT ABDOMEN PELVIS W CONTRASTHISTORY: 20 years-old Female: Abdominal pain, acute, nonlocalized for ccabdominal pain, n/v/d x2 days. Patient denies feverTECHNIQUE: Contiguous axial imaging from the level of the lung basesthrough the proximal thighs was performed following the uncomplicatedadministration of intravenous contrast. Coronal and sagittalreconstructions were obtained. COMPARISON: NoneFINDINGS:LOWER THORAX: The lung bases are clear.LIVER: Liver is normalin size and contour. No focal hepatic lesion isseen.GALLBLADDER AND BILIARY TREE: The gallbladder appears unremarkable. Noradiopaque gallstones are seen. No intra or extrahepatic biliary ductaldilationis visualized. SPLEEN: The spleen appears unremarkable.PANCREAS: No ductal dilation or masses are vis ualized.ADRENAL GLANDS: No adrenal masses are seen. KIDNEYS: No hydronephrosis, stones, or solid masses are visualized.PELVIS/BLADDER: The bladder is almost completely collapsed. The wall isslightly prominent and questionable perivesicular stranding is noted. Theuterus is unremarkable. A left adnexal cyst measures 3.8 cm. The rightovary is unremarkable.GI TRACT: No dilation or bowel wall thickening is seen. A tubular midlinestructure which may represent the appendix is unremarkable (3:91).PERITONEUMAND RETROPERITONEUM: No intra- abdominal free air or fluidcollection is visualized. A fat-containing umbilical hernia measuresapproximately 0.4 cm at the level of the fascial defect. LYMPH NODES: Multiple subcentimeter mesenteric lymph nodes are visualized,predominantly in the right lower quadrant.VESSELS: The vessels appear unremarkable.BONES AND SOFT TISSUES: No suspicious lytic or sclerotic bony les ions arepresent. IMPRESSION1. Multiple prominent mesenteric lymph nodes in the right lower quadrantcan be seen with mesenteric adenitis.2. Retroverted uterus with no focal lesions. A left adnexal cyst measures3.8 cm. Recommend further evaluation with pelvic ultrasound. Preliminary Report Dictated by Resident: Jessica Bravo MD., have reviewed this study and agree with theabove report.[facility]ysis[facility]21-[facility]-07 15:54:57 Test Item Value Reference Range Interpretation Comments APPEARANCE (test code = Clear Clear 8365776398) COLOR (test code = Yellow Yellow 1985299960) PH (test code = 5.0 4.8-8.0 6280542709) SP GRAVITY (test code = 1.023 1.003-1.030 3983722668) GLU U QUAL (test code = Normal Normal 4070764192) BLOOD (test code = Negative Negative 3327491535) KETONES (test code = Negative Negative 8146142469) PROTEIN (test code = Negative Negative 2887-8) UROBILIN (test code = Normal Normal 2831071049) BILIRUBIN (test code = Negative Negative 5977799512) NITRITE (test code = Negative Negative 4348484460) LEUK DEXTER (test code = Negative Negative 7729131722) RBC/HPF (test code = 2 See_Comment [Autom ated message] 0657004230) The system Porch generated this result transmitted ref erence range: 0 - 3 HP F. The reference range was not used to int erpret this result as normal/abnormal . WBC/HPF (test code = 1 See_Comment [Autom ated message] 3985796214) The system Porch generated this result transmitted ref erence range: 0 - 5 HP F. The reference range was not used to int erpret this result as normal/abnormal . BACTERIA (test code = Negative Negative 5977954571) MUCOUS (test code = Slight Negative LPF A 7029822863) SQ EPITH (test code = <1 See_Comment [Auto mated message] 9811094896) The system Porch generated this result transmitted ref erence range: <=2 HPF. The reference range was not used to int erpret this result as normal/abnormal . Lab Interpretation (test Abnormal code = 91737-6) [facility]regnancy Test, [id number] 15:42:20 Test Item Value Reference Range Interpretation Comments PREG SERUM (test code Negative = 0845463278) QAMAR (test code = QAMAR) Less than 10 IU/L. If low titer or ectopic is suspected, resubmit specimen in 48-72 hours. [facility]enton[facility]atic Function Panel (ALB, T.PRO, BILI T, BU/BC, ALT, AST, ALK PHOS)2021-01-29 15:39:57 Test Item Value Reference Range Interpretation Comments TOTAL BILI (test code = 7088232383) 0.7 mg/dL 0.1-1.1 BILI UNCON (test code = 9798223579) 0.6 mg/dL 0.1-1.1 BILI CONJ (test code = 0511201431) 0.0 mg/dL 0.0-0.3 T PROTEIN (test code = 2591032892) 7.9 g/dL 6.3-8.2 ALBUMIN (test code = 0358860162) 4.8 g/dL 3.5-5.0 ALK PHOS (test code = 5091106013) 108 U/L 34-122 ALTv (test code = 1742-6) 56 U/L 5-35 H AST(SGOT) (test code = 0508753539) 42 U/L 13-40 H Lab Interpretation (test code = Abnormal 78610-4) [facility]entonLipase [id number] 15:39:57 Test Item Value Reference Range Interpretation Comments LIPASE (test code = 9358123079) 108 U/L 0-220 Lab Interpretation (test code = Normal 28545-4) [facility]enton[facility] Metabolic Panel (NA, K, CL, CO2, GLUCOSE, BUN, CREATININE, CA)2021-01-29 15:39:56 Test Item Value Reference Range Interpretation Comments NA (test code = 140 mmol/L 135-145 7147899688) K (test code = 4.0 mmol/L 3.5-5.0 5173567952) CL (test code = 105 mmol/L 98-108 4870510642) CO2 TOTAL (test code 25 mmol/L 23-31 = 2375657349) AGAP (test code = 10 2-16 8721978491) BUN (test code = 10 mg/dL 7-23 0415595558) GLUCOSE (test code = 106 mg/dL 70-110 3786239603) CREATININE (test code 0.63 mg/dL 0.50-1.04 = 5342670528) CALCIUM (test code = 9.8 mg/dL 8.6-10.6 2408660044) eGFR (test code = 121.7 mL/min/1.73m2 6895166130) QAMAR (test code = QAMAR) Association of Glomerular Filtration Rate (GFR) and Staging of Kidney Disease* + + +- +| GFR (mL/min/1.73 m2) | With Kidney Damage | Without Kidney Damage+ ------+ ----+ ------+| >90 | Stage one | Normal + + +- +| 60-89 | Stage two | Decreased GFR + + +- +| 30-59 | Stage three | Stage three + + +- +| 15-29 | Stage four | Stage four + + +- +| <15 (or dialysis) | Stage five | Stage five + + +- + *Each stage assumes the associated GFR level has been in effect for at least three months. Stages 1 to 5, with or without kidney disease, indicate chronic kidney disease. Notes: Determination of stages one and two (with eGFR >59mL/min/1.73 m2) requires estimation of kidney damage for at least three months as defined by structural or functional abnormalities of the kidney, manifested by either:Pathological abnormalities or Markers of kidney damage (including abnormalities in the composition of the blood or urine or abnormalities in imaging tests). [facility] with [id number] 15:28:36 Test Item Value Reference Range Interpretation Comments WBC (test code = 11.28 See_Comment H [Automated 1597-2) message] The sy stem which generated this result transmitted reference range : 4.30 - 11.10 10*3/?L. The reference range was not used to interpret this result as normal/abnormal . RBC (test code = 5.45 See_Comment H [Automated 357-8) message] The sy stem which generated this result transmitted reference range : 3.93 - 5.25 10*6/?L. The reference range was not used to interpret this result as normal/abnormal . HGB (test code = 13.5 g/dL 11.6-15.0 718-7) HCT (test code = 42.5 % 35.7-45.2 4544-3) MCV (test code = 78.0 fL 80.6-95.5 L 787-2) MCH (test code = 24.8 pg 25.9-32.8 L 785-6) MCHC (test code = 31.8 g/dL 31.6-35.1 786-4) RDW-SD (test code = 40.1 fL 39.0-49.9 83216-6) RDW-CV (test code = 14.2 % 12.0-15.5 788-0) PLT (test code = 331 See_Comment [Automated 777-3) message] The sy stem which generated this result transmitted reference range : 166 - 358 10*3/ ?L. The reference r abdias was not used to interpret this result as normal/abnormal . MPV (test code = 9.8 fL 9.5-12.9 65974-9) NRBC/100 WBC (test 0.0 See_Comment [Automat ed code = 7864691984) message] The system which generated this result transmitted reference range : 0.0 - 10.0 /100 WBCs. The refer ence range was not u sed to interpret th is result as normal/abnormal . NRBC x10^3 (test code <0.01 See_Comment [Auto mated = 8124899186) message] The s ystem which generated this result transmitted reference range : 10*3/?L. The reference range was not used to interpret this result as normal/abnormal . GRAN MAT (NEUT) % 80.4 % (test code = 770-8) IMM GRAN % (test code 0.30 % = 6067320193) LYMPH % (test code = 16.0 % 736-9) MONO % (test code = 2.6 % 5905-5) EOS % (test code = 0.3 % 713-8) BASO % (test code = 0.4 % 706-2) GRAN MAT x10^3(ANC) 9.08 10*3/uL 1.88-7.09 H (test code = 8648599660) IMM GRAN x10^3 (test 0.03 10*3/uL 0.00-0.06 code = 3552461884) LYMPH x10^3 (test code 1.81 10*3/uL 1.32-3.29 = 731-0) MONO x10^3 (test code 0.29 10*3/uL 0.33-0.92 L = 742-7) EOS x10^3 (test code = 0.03 10*3/uL 0.03-0.39 711-2) BASO x10^3 (test code 0.04 10*3/uL 0.01-0.07 = 704-7) Lab Interpretation Abnormal (test code = 30759-9) [facility]entonPO[facility] [id number] 15:23:00 Test Item Value Reference Range Interpretation Comments POCT PREG (test code = 1605) Negative On board controls acceptable with C Pass Line (test code = 3574) Lab Interpretation (test code = Normal 08757-0) [facility] [id number] 11:25:00 [facility] 2000 Sex: F Name: CARLOS MISHRA [facility] : 2000 Age/S: 20 / F [address] [place] [address] Bl Unit #: [id number] Loc: T[place] S[place] [address] Phys: Monica Ash MD Acct: [id number] Dis Date: Status: REG ER PHONE #: [phone] Exam Date: 01/03/202107/2021 FAX #: [phone] Reason: acute on chronic pain EXAMS: CPT CODE: [id number] CT ABD PELVIS W/CONT 12265 CT ABDOMEN AND PELVIS WITH CONTRAST AND MULTIPLANAR REFORMATS 01/03/2021. INDICATION: Acute on chronic abdominal pain. Diarrhea and dizziness. COMPARISON: Limited abdomen ultrasound 12/19/2020 and pelvic ultrasound 02/27/2019. TECHNIQUE: Helical imaging was performed diaphragm through the symphysis with axial and coronal reformations obtained. IV CONTRAST: 100mL Isovue-300. GI CONTRAST: None. DLP= 207.06 mGy-cm FINDINGS: LOWER CHEST: The lung bases are clear. SOLID ORGANS: No gross focal abnormality seen in the liver, gallbladder, adrenal glands or kidneys.Normal caliber pancreas with prominent pancreatic tail inseparable from the splenic parenchyma in the axial plane. No inflammatory change.. BOWEL: Limited assessment without oral contrast. No pneumatosis or portal venous air. No signs of diverticulitis. The appendix is difficult to visualize. There isno pericecal inflammation. Grossly unremarkable terminal ileum. PERITONEUM: No free intraperitoneal fluid or air. RETROPERITONEUM: No adenopathy. The aorta is unremarkable.. PELVIS: Dominant 19 mm right hypodense ovarian follicle without solid adnexal masses. No free pelvic fluid. The uterus and left ovary are unremarkable. No pelvic adenopathy. No inguinal hernia or adenopathy. MUSCULOSKELETAL: Mild smooth thoracolumbar dextroscoliosis. Otherwise unremarkable. IMPRESSION: 1. No acute CT explanation for the patient's symptoms. 2. Dominant 19 mm right ovarian follicle, still considered within normal limits. No free fluid. 3. Incidental bulbous configuration of the pancreatic tail inseparable fromthe adjacent spleen. Appearance may be constitutional or related PAGE 1 Signed Report (CONTINUED) Name: CARLOS MISHRA [facility] [place] : 2000 Age/S: 20 / F [address] [place] [address] Unit #: [id number] Loc: [place] [address] Phys: Monica Ash MD Acct: [id number] Dis Date: Status: REG ER PHONE #: [phone] Exam Date: 01/03/20211101 FAX #: [phone] Reason: acute on chronic pain EXAMS: CPT CODE: [id number] CT ABD PELVIS W/CONT 38504 (Continued) to benign pancreatic tail splenosis. This can be confirmed with outpatient pancreatic MRI, if indicated. ____ CT imaging performed at this location utilizes radiation dose optimization techniques which include one or more of the following: -Automated exposure control -Adjustment of the mA and/or kV according to patient size -Use of iterative reconstruction technique SL: [id number] at 1125 Reported and signed by: Spencer Pulido M.D. CC: Monica Ash MD Technologist:Jennifer Maciel, RT(R)(CT) CTDI: DLP: Trnscb Date/Time: 01/03/2021 (112) t.SDR.ERR2 Orig Print D/T: S: 01/03/2021 (1129) PAGE 2 Signed ReportUA RFLX MICR CULT IF [id number] 10:47:00 Test Item Value Reference Range Interpretation Comments UA COLOR (test code = COLU) YELLOW YEL/STRAW UA APPEARANCE (test code = CLEAR CLEAR APPU) UA GLUCOSE DIPSTICK (test code NEGATIVE NEGATIVE = DGLUU) UA BILIRUBIN DIPSTICK (test NEGATIVE NEGATIVE code = BILU) UA KETONE DIPSTICK (test code = NEGATIVE NEGATIVE KETU) UA SPECIFIC GRAVITY (test code 1.012 1.005-1.030 N = SGU) UA BLOOD DIPSTICK (test code = 3+ NEGATIVE A MOY) UA PH DIPSTICK (test code = 7.0 5.0-7.0 N JOSE LUIS) UA PROTEIN DIPSTICK (test code NEGATIVE NEGATIVE = PROU) UA UROBILINIOGEN DIPSTICK (test 0.2 mg/dL 0.2-1.0 code = URO) UA NITRITE DIPSTICK (test code NEGATIVE NEGATIVE = ANA) UA LEUKOCYTE ESTERASE DIPSTICK NEGATIVE NEGATIVE (test code = LEUU) UA WBC (test code = WBCU) 0-3 WBC/HPF 0-3 UA RBC (test code = RBCU) 11-20 RBC/HPF 0-3 UA WBC NO REFLEX (test code = 0-3 WBC/HPF 0-3 WBCUCL) UA BACTERIA (test code = BACU) TRACE /HPF NONE SEEN UA SQUAMOUS CELLS (test code = 0-5 /HPF NONE SEEN SQU) Indication for culture: Dysuria/FrequencySpecimen Description: CLEAN CATCHUR HCG [id number] 10:46:00 Test Item Value Reference Range Interpretation Comments UR HCG QUAL (test code = HCGQLU) NEGATIVE NEGATIVE COMPREHENSIVE METABOLIC [id number] 10:16:00 Test Item Value Reference Range Interpretation Comments SODIUM (test code = NA) 139 mEq/L 134-147 N POTASSIUM (test code = 3.8 mEq/L 3.4-5.0 N K) CHLORIDE (test code = 108 mEq/L 100-108 N CL) CARBON DIOXIDE (test 25 mEq/l 21-33 N code = CO2) ANION GAP (test code = 10 0-20 N GAP) GLUCOSE (test code = 103 mg/dL 70-110 N GLU) BLOOD UREA NITROGEN 10 mg/dL 7-18 N (test code = BUN) GLOMERULAR FILTRATION 92.4 110-120 L Units of measure = RATE (test code = GFR) ml/mi n/1.73 m2 CREATININE (test code = 0.8 mg/dL 0.6-1.3 N CREAT) TOTAL PROTEIN (test 7.7 g/dL 6.4-8.2 N code = PROT) ALBUMIN (test code = 4.50 g/dL 3.4-5.0 N ALB) CALCIUM (test code = 9.9 mg/dL 8.0-10.5 N CA) BILIRUBIN TOTAL (test 0.60 mg/dL 0.0-1.0 N code = BILT) SGOT/AST (test code = 38 IUnit/L 15-37 H AST) SGPT/ALT (test code = 40 IUnit/L 30-65 N ALT) ALKALINE PHOSPHATASE 99 IUnit/L 30-165 N TOTAL (test code = ALKP) [id number] 10:16:00 Test Item Value Reference Range Interpretation Comments LIPASE (test code = LIP) 39 U/L 13-57 N [id number] 10:16:00 Test Item Value Reference Range Interpretation Comments MAGNESIUM (test code = MAG) 2.11 mg/dL 1.80-2.40 N CBC W/AUTO [id number] 09:50:00 Test Item Value Reference Range Interpretation Comments WHITE BLOOD CELL (test code = 7.6 x10 3/uL 4.5-11.0 N WBC) RED BLOOD CELL (test code = 5.19 x10 6/uL 3.54-5.02 H RBC) HEMOGLOBIN (test code = HGB) 13.0 g/dL 11.0-15.0 N HEMATOCRIT (test code = HCT) 41.7 % 33.0-45.0 N MEAN CELL VOLUME (test code = 80.3 fL 81.0-99.0 L MCV) MEAN CELL HGB (test code = MCH) 25.0 pg 27.0-33.0 L MEAN CELL HGB CONCETRATION 31.2 g/dL 33.0-37.0 L (test code = MCHC) RED CELL DISTRIBUTION WIDTH CV 14.1 % 11.5-14.5 N (test code = RDW) RED CELL DISTRIBUTION WIDTH SD 41.1 fL 37.0-54.0 N (test code = RDW-SD) PLATELET COUNT (test code = 308 x10 3/uL 150-400 N PLT) MEAN PLATELET VOLUME (test code 9.9 fL 7.0-9.0 H = MPV) NEUTROPHIL % (test code = NT%) 65.6 % 56.0-77.0 N IMMATURE GRANULOCYTE % (test 0.3 % 0.0-2.0 N code = IG%) LYMPHOCYTE % (test code = LY%) 27.1 % 14.0-32.0 N MONOCYTE % (test code = MO%) 4.5 % 4.8-9.0 L EOSINOPHIL % (test code = EO%) 2.0 % 0.3-3.7 N BASOPHIL % (test code = BA%) 0.5 % 0.0-2.0 N NUCLEATED RBC % (test code = 0.0 % 0-0 N NRBC%) NEUTROPHIL # (test code = NT#) 5.00 x10 3/uL 2.0-7.6 N IMMATURE GRANULOCYTE # (test 0.02 x10 3/uL 0.00-0.03 N code = IG#) LYMPHOCYTE # (test code = LY#) 2.06 x10 3/uL 1.0-3.8 N MONOCYTE # (test code = MO#) 0.34 x10 3/uL 0.1-0.8 N EOSINOPHIL # (test code = EO#) 0.15 x10 3/uL 0.0-0.2 N BASOPHIL # (test code = BA#) 0.04 x10 3/uL 0.0-0.2 N NUCLEATED RBC # (test code = 0.00 x10 3/uL 0.0-0.1 N NRBC#) MANUAL DIFF REQUIRED (test code NO = MDIFF) US [id number] 15:01:04EXAMINATION: US GALLBLADDER CLINICAL HISTORY: RUQ pain COMPARISON: None. FINDINGS: Gallbladder: The gallbladder is without evidence of calculi. The gallbladder wall is not thickened and there is no david cholecystic fluid. CBD: 3 mm , within normal limits. Portal vein: The portal vein demonstrates normal hepatopedal flow. The portal vein measures 8 mm. IMPRESSION: Normal gallbladder ultrasound examination. 1D2RAD_PS02Hm Interface, Radiology Results 12/26/2020 10:04 AM CDT EXAMINATION: US GALLBLADDERCLINICAL HISTORY: RUQ painCOMPARISON: None.FINDINGS:Gallbladder: The gallbladder is without evidence of calculi. The gallbladder lester not thickened and there is no pericholecystic fluid.CBD: 3 mm , within normal limits.Portal vein:The portal vein demonstrates normal hepatopedal flow. The portal vein measures 8 mm.IMPRESSION:Normal gallbladder ultrasound examination.[id number] [id number] 15:01:04EXAMINATION: US GALLBLADDER CLINICAL HISTORY: RUQ pain COMPARISON: None. FINDINGS: Gallbladder: The gallbladder is without evidence of calculi. The gallbladder wall is not thickened and there is no pericholecystic fluid. CBD: 3 mm , within normal limits. Portal vein: The portal vein demonstrates normal hepatopedal flow. The portal vein measures 8 mm. IMPRESSION: Normal gallbladder ultrasound examination. 1D2RAD_PS02Hm Interface, Radiology Results 12/26/2020 10:04 AM CDT EXAMINATION: US GALLBLADDERCLINICAL HISTORY: RUQ painCOMPARISON: None.FINDINGS:Gallbladder: The gallbladder is without evidence of calculi. The gallbladder lester not thickened and there is no pericholecystic fluid.CBD: 3 mm , within normal limits.Portal vein:The portal vein demonstrates normal hepatopedal flow. The portal vein measures 8 mm.IMPRESSION:Normal gallbladder ultrasound examination.[id number]_PS02[facility] US ABDOMEN [id number] 13:08:00 [facility] 2000 Sex: F Name: CARLOS MISHRA [facility] : 2000 Age/S: 20 / F [address] [place] [address] Unit #: [id number] Loc: T[place] [address] Phys: Mary Ross Acct: [id number] Dis Date: Status: REG ER PHONE #: [phone] Exam Date: 12/19/2020 [facility] FAX #: [phone] Reason: UPPER ABD PAIN EXAMS: CPT CODE: [id number] ABDOMEN [facility] [address] STUDY: - US ABDOMEN [facility] 12/19/2020 10:45 AM Ordering Physician: Mary Ross Patient Name: CARLOS MISRHA MR: [id number] : 2000; Age: 20 years y/o FemaleClinical Indication: UPPER ABD PAIN Comparison: None TECHNIQUE: Grayscale and limited color sonographic evaluation of the gallbladder was performed with standard technique. FINDINGS: LIVER: The hepaticsize, shape, and echotexture are normal. No focal hepatic lesion is appreciated. The right hepatic lobe measures 15.7 cm in diameter. Nonspecific pulsatile waveform within the main portal vein, which can be seen in healthy patients. BILE DUCTS: No evidence of intrahepatic or extrahepatic biliary ductal dilatation. The visualized common bile duct measures 3 mm at maximum. Portions of the distal commonbile duct are never well-visualized. GALLBLADDER: No evidence of cholelithiasis, gallbladder sludge,pericholecystic fluid, or gallbladder wall thickening. PANCREAS: The visualized portions of the pancreas are normal. KIDNEY: The right renal size, shape, and echotexture are normal without nephrolithiasis, hydronephrosis, or focal lesion. Mild dilation of the right renal pelvis. Right kidney: 10.7 cm.AORTA AND INFERIOR VENA CAVA: The visualized portions are normal.. PAGE 1 Signed Report (CONTINUED)Name: CARLOS MISHRA [facility] [place] : 2000 Age/S: 20 / F [address] [place] [address] Bl Unit #: [id number] Loc: [place] [address] Phys: Mary Ross Acct: [id number] Dis Date: Status: REG ER PHONE #: [phone] Exam Date: 12/19/2020 1246 FAX #: [phone] Reason: UPPER ABD PAIN EXAMS: CPT CODE: [id number] US ABDOMEN LTD [address]756 (Continued) ASCITES: No significant fluid accumulation. IMPRESSION: 2. 1. No sonographic findings of cholecystitis.. 3. 2. Right renal pelviectasis. No hydronephrosis. [id number] at 1308 Reported and signed by: Fransico Shook M.D. CC: Mary Ross Technologist: Cindy Barksdale RDMS(AB)(OB) Trnscb Date/Time: 12/19/2020 (1308) t.AP24 Orig Print D/T: S: 12/19/2020 (1311) Probe: PAGE 2 Signed ReportUA RFLX MICR CULT IF [id number] 11:10:00 Test Item Value Reference Range Interpretation Comments UA COLOR (test code = COLU) YELLOW YEL/STRAW UA APPEARANCE (test code = CLEAR CLEAR APPU) UA GLUCOSE DIPSTICK (test code NEGATIVE NEGATIVE = DGLUU) UA BILIRUBIN DIPSTICK (test NEGATIVE NEGATIVE code = BILU) UA KETONE DIPSTICK (test code NEGATIVE NEGATIVE = KETU) UA SPECIFIC GRAVITY (test code 1.019 1.005-1.030 N = SGU) UA BLOOD DIPSTICK (test code = 2+ NEGATIVE A MOY) UA PH DIPSTICK (test code = 6.0 5.0-7.0 N JOSE LUIS) UA PROTEIN DIPSTICK (test code NEGATIVE NEGATIVE = PROU) UA UROBILINIOGEN DIPSTICK 0.2 mg/dL 0.2-1.0 (test code = URO) UA NITRITE DIPSTICK (test code NEGATIVE NEGATIVE = ANA) UA LEUKOCYTE ESTERASE DIPSTICK NEGATIVE NEGATIVE (test code = LEUU) UA WBC (test code = WBCU) 0-3 WBC/HPF 0-3 UA RBC (test code = RBCU) 21-50 RBC/HPF 0-3 UA WBC NO REFLEX (test code = 0-3 WBC/HPF 0-3 WBCUCL) UA BACTERIA (test code = BACU) NONE SEEN /HPF NONE SEEN UA SQUAMOUS CELLS (test code = 6-10 /HPF NONE SEEN A SQU) UA HYALINE CAST (test code = 0-2 /LPF NONE SEEN HYALU) UA MUCUS (test code = MUCU) TRACE /LPF NONE SEEN Indication for culture: Dysuria/FrequencySpecimen Description: MID STREAM COMPREHENSIVE METABOLIC [id number] 11:06:00 Test Item Value Reference Range Interpretation Comments SODIUM (test code = NA) 141 mEq/L 134-147 N POTASSIUM (test code = 3.8 mEq/L 3.4-5.0 N K) CHLORIDE (test code = 108 mEq/L 100-108 N CL) CARBON DIOXIDE (test 25 mEq/l 21-33 N code = CO2) ANION GAP (test code = 12 0-20 N GAP) GLUCOSE (test code = 90 mg/dL 70-110 N GLU) BLOOD UREA NITROGEN 11 mg/dL 7-18 N (test code = BUN) GLOMERULAR FILTRATION 80.7 110-120 L Units of measure = RATE (test code = GFR) ml/mi n/1.73 m2 CREATININE (test code = 0.9 mg/dL 0.6-1.3 N CREAT) TOTAL PROTEIN (test 8.2 g/dL 6.4-8.2 N code = PROT) ALBUMIN (test code = 4.70 g/dL 3.4-5.0 N ALB) CALCIUM (test code = 10.0 mg/dL 8.0-10.5 N CA) BILIRUBIN TOTAL (test 0.50 mg/dL 0.0-1.0 N code = BILT) SGOT/AST (test code = 17 IUnit/L 15-37 N AST) SGPT/ALT (test code = 33 IUnit/L 30-65 N ALT) ALKALINE PHOSPHATASE 108 IUnit/L 30-165 N TOTAL (test code = ALKP) [id number] 11:06:00 Test Item Value Reference Range Interpretation Comments LIPASE (test code = LIP) 40 U/L 13-57 N HCG SERUM [id number] 11:06:00 Test Item Value Reference Range Interpretation Comments HCG SERUM QUAL (test code = SERUM NEGATIVE NEGATIVE HCGQL) COMPREHENSIVE METABOLIC [id number] 10:52:00 Test Item Value Reference Range Interpretation Comments SODIUM (test code = NA) mEq/L 134-147 POTASSIUM (test code = K) mEq/L 3.4-5.0 CHLORIDE (test code = CL) mEq/L 100-108 CARBON DIOXIDE (test code = CO2) mEq/l 21-33 ANION GAP (test code = GAP) 0-20 GLUCOSE (test code = GLU) mg/dL 70-110 BLOOD UREA NITROGEN (test code = mg/dL 7-18 BUN) GLOMERULAR FILTRATION RATE (test 110-120 code = GFR) CREATININE (test code = CREAT) mg/dL 0.6-1.3 TOTAL PROTEIN (test code = PROT) g/dL 6.4-8.2 ALBUMIN (test code = ALB) g/dL 3.4-5.0 CALCIUM (test code = CA) mg/dL 8.0-10.5 BILIRUBIN TOTAL (test code = BILT) mg/dL 0.0-1.0 SGOT/AST (test code = AST) IUnit/L 15-37 SGPT/ALT (test code = ALT) IUnit/L 30-65 ALKALINE PHOSPHATASE TOTAL (test IUnit/L 30-165 code = ALKP) [id number] 10:52:00 Test Item Value Reference Range Interpretation Comments LIPASE (test code = LIP) U/L 13-57 HCG SERUM [id number] 10:52:00 Test Item Value Reference Range Interpretation Comments HCG SERUM QUAL (test code = SERUM NEGATIVE NEGATIVE HCGQL) CBC W/AUTO [id number] 10:45:00 Test Item Value Reference Range Interpretation Comments WHITE BLOOD CELL (test code = 7.6 x10 3/uL 4.5-11.0 WBC) RED BLOOD CELL (test code = 5.56 x10 6/uL 3.54-5.02 H RBC) HEMOGLOBIN (test code = HGB) 13.9 g/dL 11.0-15.0 N HEMATOCRIT (test code = HCT) 45.6 % 33.0-45.0 H MEAN CELL VOLUME (test code = 82.0 fL 81.0-99.0 N MCV) MEAN CELL HGB (test code = MCH) 25.0 pg 27.0-33.0 L MEAN CELL HGB CONCETRATION 30.5 g/dL 33.0-37.0 L (test code = MCHC) RED CELL DISTRIBUTION WIDTH CV 14.3 % 11.5-14.5 N (test code = RDW) RED CELL DISTRIBUTION WIDTH SD 42.6 fL 37.0-54.0 N (test code = RDW-SD) PLATELET COUNT (test code = 320 x10 3/uL 150-400 N PLT) MEAN PLATELET VOLUME (test code 9.8 fL 7.0-9.0 H = MPV) NEUTROPHIL % (test code = NT%) 58.5 % 56.0-77.0 N IMMATURE GRANULOCYTE % (test 0.1 % 0.0-2.0 N code = IG%) LYMPHOCYTE % (test code = LY%) 33.5 % 14.0-32.0 H MONOCYTE % (test code = MO%) 3.6 % 4.8-9.0 L EOSINOPHIL % (test code = EO%) 3.6 % 0.3-3.7 N BASOPHIL % (test code = BA%) 0.7 % 0.0-2.0 N NUCLEATED RBC % (test code = 0.0 % 0-0 N NRBC%) NEUTROPHIL # (test code = NT#) 4.42 x10 3/uL 2.0-7.6 N IMMATURE GRANULOCYTE # (test 0.01 x10 3/uL 0.00-0.03 N code = IG#) LYMPHOCYTE # (test code = LY#) 2.53 x10 3/uL 1.0-3.8 N MONOCYTE # (test code = MO#) 0.27 x10 3/uL 0.1-0.8 N EOSINOPHIL # (test code = EO#) 0.27 x10 3/uL 0.0-0.2 H BASOPHIL # (test code = BA#) 0.05 x10 3/uL 0.0-0.2 N NUCLEATED RBC # (test code = 0.00 x10 3/uL 0.0-0.1 N NRBC#) MANUAL DIFF REQUIRED (test code NO = MDIFF) XR Abdomen 1 [id number] 17:04:29EXAMINATION: XR ABDOMEN 1 VW HISTORY: epigastric abd pain COMPARISON: 10/11/2020 IMPRESSION: Please note uppermost abdomen is excluded from this evaluation, which might limit evaluation for free air under the diaphragm. Bowel gas pattern nonspecific.Generalized paucity small bowel gas, which limits evaluation for bowel obstruction.Colon relatively underdistended, with mild stool burden.No evidence of pneumatosis intestinalis or portal venous gas. No pathologic calcification. [id number] Interface, Radiology Results - 11/01/2020 11:07 AM CST EXAMINATION: XR ABDOMEN 1 VWHISTORY: epigastric abd painCOMPARISON: 10/11/2020IMPRESSION:Please note uppermost abdomen is excluded from this evaluation, which might limit evaluation for free air under the diaphragm. Bowel gas pattern nonspecific.Generalized paucity small bowel gas, which limits evaluation for bowel obstruction.Colon relatively underdistended, with mild stool burden.No evidence of pneumatosis intestinalis or portal venous gas.No pathologic calcification.[id number] [id number] 17:04:29EXAMINATION: XR ABDOMEN 1 VW HISTORY: epigastric abd pain COMPARISON: 10/11/2020 IMPRESSION: Please note uppermost abdomen is excluded from this evaluation, which might limit evaluation for free air under the diaphragm. Bowel gas pattern nonspecific.Generalized paucity small bowel gas, which limits evaluation for bowel obstruction.Colon relatively underdistended, with mild stool burden.No evidence of pneumatosis intestinalis or portal venous gas. No pathologic calcification. [id number] Interface, Radiology Results Incoming - 11/01/2020 11:07 AM CST EXAMINATION: XR ABDOMEN 1 VWHISTORY: epigastric abd painCOMPARISON: 10/11/2020IMPRESSION:Please note uppermost abdomen is excluded from this evaluation, which might limit evaluation for free air under the diaphragm. Bowel gas pattern nonspecific.Generalized paucity small bowel gas, which limits evaluation for bowel obstruction.Colon relatively underdistended, with mild stool burden.No evidence of pneumatosis intestinalis or portal venous gas.No pathologic calcification.[id number] URINALYSIS [id number] 16:56:00 Test Item Value Reference Range Interpretation Comments UA COLOR (test code = COLU) YELLOW YEL/STRAW UA APPEARANCE (test code = CLOUDY CLEAR A APPU) UA GLUCOSE DIPSTICK (test code NEGATIVE NEGATIVE = DGLUU) UA BILIRUBIN DIPSTICK (test NEGATIVE NEGATIVE code = BILU) UA KETONE DIPSTICK (test code NEGATIVE NEGATIVE = KETU) UA SPECIFIC GRAVITY (test code 1.016 1.005-1.030 N = SGU) UA BLOOD DIPSTICK (test code = 3+ NEGATIVE A MOY) UA PH DIPSTICK (test code = 6.0 5.0-7.0 N JOSE LUIS) UA PROTEIN DIPSTICK (test code NEGATIVE NEGATIVE = PROU) UA UROBILINIOGEN DIPSTICK 0.2 mg/dL 0.2-1.0 (test code = URO) UA NITRITE DIPSTICK (test code NEGATIVE NEGATIVE = ANA) UA LEUKOCYTE ESTERASE DIPSTICK 1+ NEGATIVE A (test code = LEUU) UA RBC (test code = RBCU) >50 RBC/HPF 0-3 A UA WBC NO REFLEX (test code = 4-9 WBC/HPF 0-3 A WBCUCL) UA BACTERIA (test code = BACU) NONE SEEN /HPF NONE SEEN UA SQUAMOUS CELLS (test code = 0-5 /HPF NONE SEEN SQU) UA HYALINE CAST (test code = 0-2 /LPF NONE SEEN HYALU) UA MUCUS (test code = MUCU) 2+ /LPF NONE SEEN A UA AMORPHOUS SEDIMENT (test 1+ /HPF NONE A code = AMORU) UR HCG [id number] 16:47:00 Test Item Value Reference Range Interpretation Comments UR HCG QUAL (test code = HCGQLU) NEGATIVE NEGATIVE HCG SERUM [id number] 14:22:00 Test Item Value Reference Range Interpretation Comments HCG SERUM QUAL (test code = SERUM NEGATIVE NEGATIVE HCGQL) COMPREHENSIVE METABOLIC [id number] 13:23:00 Test Item Value Reference Range Interpretation Comments SODIUM (test code = NA) 140 mEq/L 134-147 N POTASSIUM (test code = 4.0 mEq/L 3.4-5.0 N K) CHLORIDE (test code = 110 mEq/L 100-108 H CL) CARBON DIOXIDE (test 28 mEq/l 21-33 N code = CO2) ANION GAP (test code = 7 0-20 N GAP) GLUCOSE (test code = 98 mg/dL 70-110 N GLU) BLOOD UREA NITROGEN 6 mg/dL 7-18 L (test code = BUN) GLOMERULAR FILTRATION 80.7 110-120 L Units of measure = RATE (test code = GFR) ml/mi n/1.73 m2 CREATININE (test code = 0.9 mg/dL 0.6-1.3 N CREAT) TOTAL PROTEIN (test 7.4 g/dL 6.4-8.2 N code = PROT) ALBUMIN (test code = 4.30 g/dL 3.4-5.0 N ALB) CALCIUM (test code = 9.1 mg/dL 8.0-10.5 N CA) BILIRUBIN TOTAL (test 0.50 mg/dL 0.0-1.0 N code = BILT) SGOT/AST (test code = 28 IUnit/L 15-37 N AST) SGPT/ALT (test code = 40 IUnit/L 30-65 N ALT) ALKALINE PHOSPHATASE 99 IUnit/L 30-165 N TOTAL (test code = ALKP) [id number] 13:23:00 Test Item Value Reference Range Interpretation Comments LIPASE (test code = LIP) 34 U/L 13-57 N CBC W/AUTO [id number] 13:07:00 Test Item Value Reference Range Interpretation Comments WHITE BLOOD CELL (test code = x10 3/uL 4.5-11.0 WBC) RED BLOOD CELL (test code = RBC) x10 6/uL 3.54-5.02 HEMOGLOBIN (test code = HGB) 13.5 g/dL 11.0-15.0 N HEMATOCRIT (test code = HCT) 43.3 % 33.0-45.0 N MEAN CELL VOLUME (test code = fL 81.0-99.0 MCV) MEAN CELL HGB (test code = MCH) pg 27.0-33.0 MEAN CELL HGB CONCETRATION (test g/dL 33.0-37.0 code = MCHC) RED CELL DISTRIBUTION WIDTH CV % 11.5-14.5 (test code = RDW) PLATELET COUNT (test code = PLT) 310 x10 3/uL 150-400 N NEUTROPHIL % (test code = NT%) % 56.0-77.0 LYMPHOCYTE % (test code = LY%) % 14.0-32.0 NEUTROPHIL # (test code = NT#) x10 3/uL 2.0-7.6 LYMPHOCYTE # (test code = LY#) x10 3/uL 1.0-3.8 MANUAL DIFF REQUIRED (test code = MDIFF) CBC W/AUTO [id number] 13:07:00 Test Item Value Reference Range Interpretation Comments WHITE BLOOD CELL (test code = 5.4 x10 3/uL 4.5-11.0 N WBC) RED BLOOD CELL (test code = 5.41 x10 6/uL 3.54-5.02 H RBC) HEMOGLOBIN (test code = HGB) 13.5 g/dL 11.0-15.0 N HEMATOCRIT (test code = HCT) 43.3 % 33.0-45.0 N MEAN CELL VOLUME (test code = 80.0 fL 81.0-99.0 L MCV) MEAN CELL HGB (test code = MCH) 25.0 pg 27.0-33.0 L MEAN CELL HGB CONCETRATION 31.2 g/dL 33.0-37.0 L (test code = MCHC) RED CELL DISTRIBUTION WIDTH CV 14.7 % 11.5-14.5 H (test code = RDW) RED CELL DISTRIBUTION WIDTH SD 42.6 fL 37.0-54.0 N (test code = RDW-SD) PLATELET COUNT (test code = 310 x10 3/uL 150-400 N PLT) MEAN PLATELET VOLUME (test code 9.6 fL 7.0-9.0 H = MPV) NEUTROPHIL % (test code = NT%) 60.7 % 56.0-77.0 N IMMATURE GRANULOCYTE % (test 0.2 % 0.0-2.0 N code = IG%) LYMPHOCYTE % (test code = LY%) 30.9 % 14.0-32.0 N MONOCYTE % (test code = MO%) 4.2 % 4.8-9.0 L EOSINOPHIL % (test code = EO%) 2.9 % 0.3-3.7 N BASOPHIL % (test code = BA%) 1.1 % 0.0-2.0 N NUCLEATED RBC % (test code = 0.0 % 0-0 N NRBC%) NEUTROPHIL # (test code = NT#) 3.29 x10 3/uL 2.0-7.6 N IMMATURE GRANULOCYTE # (test 0.01 x10 3/uL 0.00-0.03 N code = IG#) LYMPHOCYTE # (test code = LY#) 1.68 x10 3/uL 1.0-3.8 N MONOCYTE # (test code = MO#) 0.23 x10 3/uL 0.1-0.8 N EOSINOPHIL # (test code = EO#) 0.16 x10 3/uL 0.0-0.2 N BASOPHIL # (test code = BA#) 0.06 x10 3/uL 0.0-0.2 N NUCLEATED RBC # (test code = 0.00 x10 3/uL 0.0-0.1 N NRBC#) MANUAL DIFF REQUIRED (test code NO = MDIFF) XR Abdomen Acute Inc [id number] 21:54:16EXAMINATION: XR ABDOMEN ACUTE INC CHEST 1V CLINICAL HISTORY: Nausea vomiting COMPARISON: None. IMPRESSION: Single frontal view of the chest reveals a normal cardiomediastinal silhouette. Lungs are clear. Pleural margins are sharp. Frontal views of the abdomen reveal a nondilated, nondistended bowel gas pattern. No abnormal masses or calcifications are readily identified. The remainder of the examination is unremarkable. [facility]- [id number] Interface, Radiology Results Incoming - 10/11/2020 3:57 PM CSTFo rmatting of this note might be different from the original.EXAMINATION: XR ABDOMEN ACUTE INC CHEST 1VCLINICAL HISTORY: Nausea vomitingCOMPARISON: None.IMPRESSION:Single frontal view of the chest reveals a normal cardiomediastinal silhouette. Lungs are clear. Pleural margins are sharp.Frontal views of the abdomen reveal a nondilated, nondistended bowel gas pattern. No abnormal masses or calcificationsare readily identified. The remainder of the examination is unremarkable.[id number] HospitalXR Abdomen Acute Inc [id number] 21:54:16EXAMINATION: XR ABDOMEN ACUTE INC CHEST 1V CLINICAL HISTORY: Nausea vomiting COMPARISON: None. IMPRESSION: Single frontal view of the chest reveals a normal cardiomediastinal silhouette. Lungs are clear. Pleural margins are sharp. Frontal views of the abdomen reveal a nondilated, nondistended bowel gas pattern. No abnormal masses or calcifications are readily identified. The remainder of the examination is unremarkable. [id number] Interface, Radiology Results - 10/11/2020 3:57 PM CST EXAMINATION: XR ABDOMEN ACUTE INC CHEST 1VCLINICAL HISTORY: Nausea vomitingCOMPARISON: None.IMPRESSION:Single frontal view of the chest reveals a normal cardiomediastinal silhouette. Lungs are clear. Pleural margins are sharp.Frontal views of the abdomen reveal a nondilated, nondistended bowel gas pattern. No abnormal masses or calcifications are readily identified. The remainder of the examination is unremarkable.[id number] Medical Center US PELVIS [id number] 14:14:00 Name: CARLOS MISHRA [facility] : 2000 Age/S: 18 / F [address] [place] [address] Unit #: [id number] Loc: [place] [address] Phys: Bryan Martin Acct: [id number] Dis Date: Status: REG ERPHONE #: [phone] Exam Date: 02/27/2019 1344 FAX #: [phone] Reason: six week post with heavy vaginal bleedin EXAMS: CPT CODE: [id number] PELVIS COMPLETE [id number] EXAM: US PELVIS TRANSABDOMINAL ONLY DATE: 02/27/2019 12:31 PM : 2000; Age: 18 years y/o Female INDICATION: six week post with heavy vaginal bleeding COMPARISON: None. TECHNIQUE: Multiplanar grayscale and color Doppler ultrasound of the pelvis were obtained transabdominally through a distended urinary bladder. Patient refused transvaginal examination. FINDINGS: Uterus/Myometrium: Nonvascular small echogenic focus is noted adjacent to the endometrium. Size: 7.8 x 4.3 x 5.2 cm Echogenicity: Heterogeneous Cervix: N ormal. Endometrium: Mild fluid is noted in the endometrial canal with layering nonvascular hypoechoic focus. Right ovary: Size: 1.9 x 1.5 x 1.8 cm Cysts/Masses: None. Left ovary: Size: 1.9 x 0.9 x 1.5 cm Cysts/Masses: None. Adnexa: Normal. Free fluid: None. Other: Normal flow in bilateral ovaries. Ex amination is limited by bowel gas. IMPRESSION: 1. Limited transabdominal pelvic ultrasound was performed as patient refused transvaginal examination. Mild fluid is seen in the endometrial canal with possible layering hemorrhagic products. Retained product of conception or endometritis cannot be entirely excluded. Follow-up short-term ultrasound evaluation would be PAGE 1 Signed Report (CONTINUED) Name: CARLOS MISHRA [facility] : 2000 Age/S: 18 / F [address] [place] [address] Unit #: [id number] Loc: [place] [address] Phys: Bryan Martin Acct: [id number] Dis Date: Status: REG ER PHONE #: [phone] Exam Date: 02/27/2019 1348 FAX #: [phone] Reason: six week post with heavy vaginal bleedin EXAMS: CPT CODE: [id number] US PELVIS COMPLETE [id number] (Continued) helpful. 2. Nonvascular small indeterminate echogenic focus is noted adjacent to the endometrium. SL: [id number] at 1414 Reported and signed by: Melinda Benjamin D.O. CC: Sabra Maloney MD; Bryan GTZ; Claudy Kyle MD Technologist: Jovana Corea RDMS() Trnscb Date/Time: 02/27/2019 (1414) [email or web address] Orig Print D/T: S: 02/27/2019 (1972) Probe: PAGE 2 Signed ReportBASIC METABOLIC [id number] 13:09:00 Test Item Value Reference Range Interpretation Comments SODIUM (test code = NA) 139 mEq/L 134-147 N POTASSIUM (test code = K) 3.7 mEq/L 3.4-5.0 N CHLORIDE (test code = CL) 108 mEq/L 100-108 N CARBON DIOXIDE (test code = CO2) 24 mEq/L 21-33 N ANION GAP (test code = GAP) 11 0-20 N GLUCOSE (test code = GLU) 112 mg/dL 60-110 H BLOOD UREA NITROGEN (test code = 7 mg/dL 7-18 N BUN) CREATININE (test code = CREAT) 0.9 mg/dL 0.6-1.3 N CALCIUM (test code = CA) 8.5 mg/dL 8.0-10.5 N HCG SERUM [id number] 13:09:00 Test Item Value Reference Range Interpretation Comments HCG SERUM QUAL (test code = SERUM NEGATIVE NEGATIVE HCGQL) BASIC METABOLIC [id number] 13:01:00 Test Item Value Reference Range Interpretation Comments SODIUM (test code = NA) mEq/L 134-147 POTASSIUM (test code = K) mEq/L 3.4-5.0 CHLORIDE (test code = CL) mEq/L 100-108 CARBON DIOXIDE (test code = CO2) mEq/L 21-33 ANION GAP (test code = GAP) 0-20 GLUCOSE (test code = GLU) mg/dL 60-110 BLOOD UREA NITROGEN (test code = BUN) mg/dL 7-18 GLOMERULAR FILTRATION RATE (test code = GFR) CREATININE (test code = CREAT) mg/dL 0.6-1.3 CALCIUM (test code = CA) mg/dL 8.0-10.5 HCG SERUM [id number] 13:01:00 Test Item Value Reference Range Interpretation Comments HCG SERUM QUAL (test code = SERUM NEGATIVE NEGATIVE HCGQL) PROTHROMBIN [id number] 13:00:00 Test Item Value Reference Range Interpretation Comments PROTHROMBIN TIME 12.1 SECONDS 9.3-12.9 N PATIENT (test code = PTP) INTERNATIONAL NORMAL 1.1 0.8-1.2 N TARGET INR BY RATIO (test code = INDICATIO N Indication INR) INR1. Prophylax is of venous thrombos is 2.0 - 3.0 (orthoped ic surgery), Proph ylaxis of venous throm bosis (other than hig h-risk surgery), Treat ment of Deep Vein Thrombosis/Pulm onary Embolism, Preve ntion of systemic emb olism - Tissue heart va lves, Acute Myocardia l Infarction (to prevent systemic emboli sm), Valvular heart disease, Atrial Fibrillation, Bileaflet mecha nical valve in aortic position.2. Mec hanical prosthetic valv es (high risk), 2. 5 - 3.5 Presence of Lup us Anticoagulant o r Antiphospholipi d Antibodies, Pre vention of systemic emb olism - Acute Myocardia l Infarction (to prevent recurrent infar ct). THROMBOPLASTIN TIME [id number] 13:00:00 Test Item Value Reference Range Interpretation Comments THROMBOPLASTIN TIME 31.1 Seconds 25.0-39.5 N Therape utic Range: PARTIAL (test code = 50.4 - 88.3 Seconds PTT) Effective 01/08/2019 URINALYSIS [id number] 12:56:00 Test Item Value Reference Range Interpretation Comments UA COLOR (test code = COLU) YELLOW YEL/STRAW UA APPEARANCE (test code = APPU) SL CLOUDY CLEAR UA GLUCOSE DIPSTICK (test code = NEGATIVE NEGATIVE DGLUU) UA BILIRUBIN DIPSTICK (test code NEGATIVE NEGATIVE = BILU) UA KETONE DIPSTICK (test code = NEGATIVE NEGATIVE KETU) UA SPECIFIC GRAVITY (test code = 1.020 1.005-1.030 N SGU) UA BLOOD DIPSTICK (test code = 2+ NEGATIVE A MOY) UA PH DIPSTICK (test code = JOSE LUIS) 6.0 5.0-7.0 N UA PROTEIN DIPSTICK (test code = NEGATIVE NEGATIVE PROU) UA UROBILINIOGEN DIPSTICK (test 2.0 mg/dL 0.2-1.0 A code = URO) UA NITRITE DIPSTICK (test code = NEGATIVE NEGATIVE ANA) UA LEUKOCYTE ESTERASE DIPSTICK 2+ NEGATIVE A (test code = LEUU) UA WBC (test code = WBCU) 4-9 WBC/HPF 0-3 A UA RBC (test code = RBCU) 0-3 RBC/HPF 0-3 UA BACTERIA (test code = BACU) TRACE /HPF NONE SEEN UA SQUAMOUS CELLS (test code = 6-10 /HPF NONE SEEN A SQU) UA MUCUS (test code = MUCU) 3+ /LPF NONE SEEN A COMMENTS: Clean CatchCBC W/AUTO [id number] 12:51:00 Test Item Value Reference Range Interpretation Comments WHITE BLOOD CELL (test code = 5.83 x10 3/uL 4.5-13.0 WBC) RED BLOOD CELL (test code = 5.11 x10 6/uL 4.2-5.4 N RBC) HEMOGLOBIN (test code = HGB) 11.2 g/dL 11.1-15.7 N HEMATOCRIT (test code = HCT) 37.2 % 34.0-44.0 N MEAN CELL VOLUME (test code = 72.8 fL 77.0-87.0 L MCV) MEAN CELL HGB (test code = MCH) 21.9 pg 26.0-30.0 L MEAN CELL HGB CONCETRATION 30.1 g/dL 32.0-36.0 L (test code = MCHC) RED CELL DISTRIBUTION WIDTH CV 21.2 % 11.5-14.5 H (test code = RDW) RED CELL DISTRIBUTION WIDTH SD 55.0 fL 37.0-54.0 H (test code = RDW-SD) PLATELET COUNT (test code = 383 x10 3/uL 150-450 N PLT) MEAN PLATELET VOLUME (test code 9.7 fL 7.0-9.0 H = MPV) NEUTROPHIL % (test code = NT%) 55.2 % 32.0-54.0 H IMMATURE GRANULOCYTE % (test 0.2 % 0.0-2.0 N code = IG%) LYMPHOCYTE % (test code = LY%) 35.7 % 28.0-48.0 N MONOCYTE % (test code = MO%) 5.1 % 3.0-15.0 N EOSINOPHIL % (test code = EO%) 3.3 % 1.0-8.0 N BASOPHIL % (test code = BA%) 0.5 % 0.0-2.0 N NUCLEATED RBC % (test code = 0.0 % 0-0 N NRBC%) NEUTROPHIL # (test code = NT#) 3.22 x10 3/uL 2.0-3.2 H IMMATURE GRANULOCYTE # (test 0.01 x10 3/uL 0.00-0.03 N code = IG#) LYMPHOCYTE # (test code = LY#) 2.08 x10 3/uL 1.0-3.8 N MONOCYTE # (test code = MO#) 0.30 x10 3/uL 0.1-0.8 N EOSINOPHIL # (test code = EO#) 0.19 x10 3/uL 0.0-0.4 N BASOPHIL # (test code = BA#) 0.03 x10 3/uL 0.0-0.2 N NUCLEATED RBC # (test code = 0.00 x10 3/uL 0.0-0.1 N NRBC#) MANUAL DIFF REQUIRED (test code NO = MDIFF) SURGICAL [id number] 09:36:00 RUN DATE: 01/11/19 [facility] *LIVE* PAGE 1 RUN TIME: 935 Specimen Inquiry RUN USER: INTERFACE --------- ---PATIENT: CARLOS MISHRA LOC: [place] U #: [id number] AGE/SX: 18/F ROOM: [facility] [place] RE01/08/19REG DR:Claudy Kyle MD : 01 BED: 1 DIS: 01/10/19 STATUS: DIS IN TLOC: SPEC #: [id number] RECD: 01/09/19 STATUS: YE HANEY #: [id number] MANUEL: 01/09/[address] [facility] [address]: Claudy Kyle MD ENTERED: 01/11/19 SP TYPE: SURG SPEC OTHR DR: Nidia Corbett DO ORDERED: GM LEVEL 4 CODES: [id number] - PLACENTA, NOSCOPIES TO: Nidia Corbett DO [address] [place] [address] [address] [place] [address] Oli Kyle MD [address] [place] [address] PROCEDURES: GM LEVEL 4 (Incomplete) TISSUES: 1.PLACENTA, NOS - Placenta, 3rd trimester. FINAL DIAGNOSIS Placenta, 3rd trimester: Histologically mature saunders placenta (483 g, 25th percentile for gestational age), small area of infarction. GROSSAND MICROSCOPIC GROSS EXAMINATION: Received in formalin labeled placenta is a 483 g 16 x 14 x 1.9 cmplacenta. The surface is bluegray with tortuous vessels on the surface area in the maternal surface is intact with focal adherent hemorrhage. The eccentrically inserted 3 vessel umbilical cord measures 27 cm in length 1.1 cm in diameter. The membranes are thin and translucent. The parenchyma is beefy red with some areas of calcification. SECTION CODE: (A) Membranes (B) umbilical cord (C)-(E) placental parenchyma. MICROSCOPIC EXAMINATION: Sections of the umbilical cord reveal three vessels without significant inflammation. The membranes are unremarkable. The surface of the placenta does not show a significant inflammatory infiltrate. Maturation is appropriate for gestational age.There is a small area of infarction present. The underlying maternal decidua beneath the placenta con tains a mixed inflammatory infiltrate. CONTINUED ON NEXT PAGE RUN DATE: 01/11/19 [facility] *LIVE* PAGE 2 RUN TIME: 935 Specimen Inquiry RUN USER: INTERFACE SPEC #: [id number] PATIENT: CARLOS MISHRA #[id number] (Continued) POST-OP DIAGNOSIS -GBS, spontaneous vaginal delivery @ 39.5, delivered PRE-OP DIAGNOSIS -GBS, spontaneous vaginal delivery @ 39.5 Signed SIGNATURE ON FILE Roni Tom DO 01/11/19 0936 END OF REPORT CBC W/AUTO [id number] 08:12:00 Test Item Value Reference Range Interpretation Comments WHITE BLOOD CELL (test code = 17.25 x10 3/uL 4.5-13.0 H WBC) RED BLOOD CELL (test code = 4.00 x10 6/uL 4.2-5.4 L RBC) HEMOGLOBIN (test code = HGB) 8.4 g/dL 11.1-15.7 L HEMATOCRIT (test code = HCT) 27.9 % 34.0-44.0 L MEAN CELL VOLUME (test code = 69.8 fL 77.0-87.0 L MCV) MEAN CELL HGB (test code = 21.0 pg 26.0-30.0 L MCH) MEAN CELL HGB CONCETRATION 30.1 g/dL 32.0-36.0 L (test code = MCHC) RED CELL DISTRIBUTION WIDTH CV 20.0 % 11.5-14.5 H (test code = RDW) RED CELL DISTRIBUTION WIDTH SD 46.4 fL 37.0-54.0 N (test code = RDW-SD) PLATELET COUNT (test code = 281 x10 3/uL 150-450 N PLT) MEAN PLATELET VOLUME (test 11.0 fL 7.0-9.0 H code = MPV) NEUTROPHIL % (test code = NT%) 81.7 % 32.0-54.0 H IMMATURE GRANULOCYTE % (test 0.5 % 0.0-2.0 N code = IG%) LYMPHOCYTE % (test code = LY%) 11.9 % 28.0-48.0 L MONOCYTE % (test code = MO%) 5.0 % 3.0-15.0 N EOSINOPHIL % (test code = EO%) 0.6 % 1.0-8.0 L BASOPHIL % (test code = BA%) 0.3 % 0.0-2.0 N NUCLEATED RBC % (test code = 0.0 % 0-0 N NRBC%) NEUTROPHIL # (test code = NT#) 14.09 x10 3/uL 2.0-3.2 H IMMATURE GRANULOCYTE # (test 0.08 x10 3/uL 0.00-0.03 H code = IG#) LYMPHOCYTE # (test code = LY#) 2.06 x10 3/uL 1.0-3.8 N MONOCYTE # (test code = MO#) 0.87 x10 3/uL 0.1-0.8 H EOSINOPHIL # (test code = EO#) 0.10 x10 3/uL 0.0-0.4 N BASOPHIL # (test code = BA#) 0.05 x10 3/uL 0.0-0.2 N NUCLEATED RBC # (test code = 0.00 x10 3/uL 0.0-0.1 N NRBC#) MANUAL DIFF REQUIRED (test NO code = MDIFF) CORD ARTERIAL BLOOD [id number] 19:09:00 Test Item Value Reference Range Interpretation Comments CORD BLOOD PH (test code = PH/C) 7.26 7.20-7.30 N CORD BLOOD PCO2 (test code = 45 MMHG 45-50 N PCO2/C) CORD BLOOD PO2 (test code = 29 mmHg 15-25 H PO2/C) CORD BLOOD HCO3 (test code = 20 mmol/L 15-25 N HCO3/C) BASE EXCESS CORD (test code = -7.0 mmol/L -5-5 L JAY/C) O2 SATURATION (test code = O2S/C) 46 % 25-45 H RAPID PLASMA [id number] 10:10:00 Test Item Value Reference Range Interpretation Comments RAPID PLASMA REAGIN (test code = NONREACTIVE NONREACTIVE RPR) AG HEPATITIS B [id number] 10:10:00 Test Item Value Reference Range Interpretation Comments AG HEPATITIS B SURFACE NON REACTIVE INDEX NonReactive (test code = HBSAG) AB HIV 1 10:10:00 Test Item Value Reference Range Interpretation Comments AB HIV 1 2 (test code = NONREACTIVE INDEX NONREACTIVE [id number]) RAPID PLASMA [id number] 20:55:00 Test Item Value Reference Range Interpretation Comments RAPID PLASMA REAGIN (test code = RPR) NONREACTIVE AG HEPATITIS B [id number] 20:55:00 Test Item Value Reference Range Interpretation Comments AG HEPATITIS B SURFACE NON REACTIVE INDEX NonReactive (test code = HBSAG) AB HIV 1 20:55:00 Test Item Value Reference Range Interpretation Comments AB HIV 1 2 (test code = NONREACTIVE INDEX NONREACTIVE [id number]) [id number] 16:05:00 Test Item Value Reference Range Interpretation Comments HGBA1C% (test code = HGBA1C%) 5.5 %A1C 4.8-6.0 N RAPID PLASMA [id number] 16:00:00 Test Item Value Reference Range Interpretation Comments RAPID PLASMA REAGIN (test code = RPR) NONREACTIVE AG HEPATITIS B [id number] 16:00:00 Test Item Value Reference Range Interpretation Comments AG HEPATITIS B SURFACE NON REACTIVE INDEX NonReactive (test code = HBSAG) AB HIV 1 16:00:00 Test Item Value Reference Range Interpretation Comments AB HIV 1 2 (test code = [id number]) INDEX NONREACTIVE URINALYSIS [id number] 15:47:00 Test Item Value Reference Range Interpretation Comments UA COLOR (test code = COLU) YELLOW YEL/STRAW UA APPEARANCE (test code = APPU) CLEAR CLEAR UA GLUCOSE DIPSTICK (test code = NEGATIVE NEGATIVE DGLUU) UA BILIRUBIN DIPSTICK (test code NEGATIVE NEGATIVE = BILU) UA KETONE DIPSTICK (test code = NEGATIVE NEGATIVE KETU) UA SPECIFIC GRAVITY (test code = 1.021 1.005-1.030 N SGU) UA BLOOD DIPSTICK (test code = NEGATIVE NEGATIVE MOY) UA PH DIPSTICK (test code = JOSE LUIS) 6.0 5.0-7.0 N UA PROTEIN DIPSTICK (test code = NEGATIVE NEGATIVE PROU) UA UROBILINIOGEN DIPSTICK (test 4.0 mg/dL 0.2-1.0 A code = URO) UA NITRITE DIPSTICK (test code = NEGATIVE NEGATIVE ANA) UA LEUKOCYTE ESTERASE DIPSTICK NEGATIVE NEGATIVE (test code = LEUU) UA WBC (test code = WBCU) 4-9 WBC/HPF 0-3 A UA RBC (test code = RBCU) 0-3 RBC/HPF 0-3 UA BACTERIA (test code = BACU) TRACE /HPF NONE SEEN UA SQUAMOUS CELLS (test code = 0-5 /HPF NONE SEEN SQU) UA MUCUS (test code = MUCU) TRACE /LPF NONE SEEN DRUGS OF ABUSE SCREEN [id number] 15:45:00 Test Item Value Reference Range Interpretation Comments URN COCAINE (test code NEGATIVE NEGATIVE = COCAURN) URN CANNABINOIDS (test NEGATIVE NEGATIVE code = CANNABURN) URN AMPHETAMINE (test NEGATIVE NEGATIVE code = AMPHETURN) URN BARBITURATE (test NEGATIVE NEGATIVE code = BARBITURN) URN BENZODIAZEPINE NEGATIVE NEGATIVE Cut-off v alue:200 (test code = BENZOURN) ng/mL URN OPIATES (test code NEGATIVE NEGATIVE Cut-o ff value:2000 = OPIATURN) ng/mL URN PHENCYCLIDINE (PCP) NEGATIVE NEGATIVE Cuto ffs:Barbiturates (test code = PHENCURN) 200 ng/mLBenzodiaze pines 200 ng/mLTHC Cannabinoids 50 ng/mLOpiates(Mo rphine) 2000 ng/mLAmphe tamine 1000 ng/mLCocai ne 300 ng/mLPCP phency clidine 25 ng/mL Unconf irmed screening resul ts shouldnot be us ed for non-medical pur poses. CBC W/AUTO [id number] 15:39:00 Test Item Value Reference Range Interpretation Comments WHITE BLOOD CELL (test code = 10.63 x10 3/uL 4.5-13.0 N WBC) RED BLOOD CELL (test code = 4.43 x10 6/uL 4.2-5.4 N RBC) HEMOGLOBIN (test code = HGB) 9.2 g/dL 11.1-15.7 L HEMATOCRIT (test code = HCT) 31.4 % 34.0-44.0 L MEAN CELL VOLUME (test code = 70.9 fL 77.0-87.0 L MCV) MEAN CELL HGB (test code = 20.8 pg 26.0-30.0 L MCH) MEAN CELL HGB CONCETRATION 29.3 g/dL 32.0-36.0 L (test code = MCHC) RED CELL DISTRIBUTION WIDTH CV 19.8 % 11.5-14.5 H (test code = RDW) RED CELL DISTRIBUTION WIDTH SD 44.5 fL 37.0-54.0 N (test code = RDW-SD) PLATELET COUNT (test code = 364 x10 3/uL 150-450 N PLT) MEAN PLATELET VOLUME (test 11.3 fL 7.0-9.0 H code = MPV) NEUTROPHIL % (test code = NT%) 74.5 % 32.0-54.0 H IMMATURE GRANULOCYTE % (test 0.5 % 0.0-2.0 N code = IG%) LYMPHOCYTE % (test code = LY%) 19.3 % 28.0-48.0 L MONOCYTE % (test code = MO%) 4.5 % 3.0-15.0 N EOSINOPHIL % (test code = EO%) 0.8 % 1.0-8.0 L BASOPHIL % (test code = BA%) 0.4 % 0.0-2.0 N NUCLEATED RBC % (test code = 0.0 % 0-0 N NRBC%) NEUTROPHIL # (test code = NT#) 7.92 x10 3/uL 2.0-3.2 H IMMATURE GRANULOCYTE # (test 0.05 x10 3/uL 0.00-0.03 H code = IG#) LYMPHOCYTE # (test code = LY#) 2.05 x10 3/uL 1.0-3.8 N MONOCYTE # (test code = MO#) 0.48 x10 3/uL 0.1-0.8 N EOSINOPHIL # (test code = EO#) 0.09 x10 3/uL 0.0-0.4 N BASOPHIL # (test code = BA#) 0.04 x10 3/uL 0.0-0.2 N NUCLEATED RBC # (test code = 0.00 x10 3/uL 0.0-0.1 N NRBC#) MANUAL DIFF REQUIRED (test NO code = MDIFF) CBC W/AUTO [id number] 20:46:00 Test Item Value Reference Range Interpretation Comments WHITE BLOOD CELL (test code = 10.13 x10 3/uL 4.5-13.0 N WBC) RED BLOOD CELL (test code = 4.18 x10 6/uL 4.2-5.4 L RBC) HEMOGLOBIN (test code = HGB) 8.8 g/dL 11.1-15.7 L HEMATOCRIT (test code = HCT) 29.7 % 34.0-44.0 L MEAN CELL VOLUME (test code = 71.1 fL 77.0-87.0 L MCV) MEAN CELL HGB (test code = 21.1 pg 26.0-30.0 L MCH) MEAN CELL HGB CONCETRATION 29.6 g/dL 32.0-36.0 L (test code = MCHC) RED CELL DISTRIBUTION WIDTH CV 17.0 % 11.5-14.5 H (test code = RDW) RED CELL DISTRIBUTION WIDTH SD 42.7 fL 37.0-54.0 N (test code = RDW-SD) PLATELET COUNT (test code = 369 x10 3/uL 150-450 N PLT) MEAN PLATELET VOLUME (test 10.5 fL 7.0-9.0 H code = MPV) NEUTROPHIL % (test code = NT%) 76.2 % 32.0-54.0 H IMMATURE GRANULOCYTE % (test 0.4 % 0.0-2.0 N code = IG%) LYMPHOCYTE % (test code = LY%) 16.5 % 28.0-48.0 L MONOCYTE % (test code = MO%) 6.0 % 3.0-15.0 N EOSINOPHIL % (test code = EO%) 0.6 % 1.0-8.0 L BASOPHIL % (test code = BA%) 0.3 % 0.0-2.0 N NUCLEATED RBC % (test code = 0.0 % 0-0 N NRBC%) NEUTROPHIL # (test code = NT#) 7.72 x10 3/uL 2.0-3.2 H IMMATURE GRANULOCYTE # (test 0.04 x10 3/uL 0.00-0.03 H code = IG#) LYMPHOCYTE # (test code = LY#) 1.67 x10 3/uL 1.0-3.8 N MONOCYTE # (test code = MO#) 0.61 x10 3/uL 0.1-0.8 N EOSINOPHIL # (test code = EO#) 0.06 x10 3/uL 0.0-0.4 N BASOPHIL # (test code = BA#) 0.03 x10 3/uL 0.0-0.2 N NUCLEATED RBC # (test code = 0.00 x10 3/uL 0.0-0.1 N NRBC#) MANUAL DIFF REQUIRED (test NO code = MDIFF) RBC [id number] 20:46:00 Test Item Value Reference Range Interpretation Comments POLYCHROMASIA (test code = POLC) 2+ HYPOCHROMIA (test code = HYPO) 2+ POIKILOCYTOSIS (test code = POIK) 1+ ANISOCYTOSIS (test code = ANISO) 2+ MICROCYTOSIS (test code = MICR) 2+ TEAR DROP CELLS (test code = TEAR) FEW OVALOCYTES (test code = OVAL) 1+ SCHISTOCYTES (test code = BJ) FEW URINALYSIS [id number] 17:33:00 Test Item Value Reference Range Interpretation Comments UA COLOR (test code = COLU) [place] YEL/STRAW A UA APPEARANCE (test code = CLEAR CLEAR APPU) UA GLUCOSE DIPSTICK (test code NEGATIVE NEGATIVE = DGLUU) UA BILIRUBIN DIPSTICK (test NEGATIVE NEGATIVE code = BILU) UA KETONE DIPSTICK (test code NEGATIVE NEGATIVE = KETU) UA SPECIFIC GRAVITY (test code 1.020 1.005-1.030 N = SGU) UA BLOOD DIPSTICK (test code = NEGATIVE NEGATIVE MOY) UA PH DIPSTICK (test code = 6.0 5.0-7.0 N JOSE LUIS) UA PROTEIN DIPSTICK (test code NEGATIVE NEGATIVE = PROU) UA UROBILINIOGEN DIPSTICK 4.0 mg/dL 0.2-1.0 A (test code = URO) UA NITRITE DIPSTICK (test code NEGATIVE NEGATIVE = ANA) UA LEUKOCYTE ESTERASE DIPSTICK NEGATIVE NEGATIVE (test code = LEUU) UA WBC (test code = WBCU) 0-3 WBC/HPF 0-3 UA RBC (test code = RBCU) 0-3 RBC/HPF 0-3 UA BACTERIA (test code = BACU) NONE SEEN /HPF NONE SEEN UA SQUAMOUS CELLS (test code = 0-5 /HPF NONE SEEN SQU) UA MUCUS (test code = MUCU) 1+ /LPF NONE SEEN CBC W/AUTO [id number] 16:43:00 Test Item Value Reference Range Interpretation Comments WHITE BLOOD CELL (test code = 10.13 x10 3/uL 4.5-13.0 N WBC) RED BLOOD CELL (test code = 4.18 x10 6/uL 4.2-5.4 L RBC) HEMOGLOBIN (test code = HGB) 8.8 g/dL 11.1-15.7 L HEMATOCRIT (test code = HCT) 29.7 % 34.0-44.0 L MEAN CELL VOLUME (test code = 71.1 fL 77.0-87.0 L MCV) MEAN CELL HGB (test code = 21.1 pg 26.0-30.0 L MCH) MEAN CELL HGB CONCETRATION 29.6 g/dL 32.0-36.0 L (test code = MCHC) RED CELL DISTRIBUTION WIDTH CV 17.0 % 11.5-14.5 H (test code = RDW) RED CELL DISTRIBUTION WIDTH SD 42.7 fL 37.0-54.0 N (test code = RDW-SD) PLATELET COUNT (test code = 369 x10 3/uL 150-450 N PLT) MEAN PLATELET VOLUME (test 10.5 fL 7.0-9.0 H code = MPV) NEUTROPHIL % (test code = NT%) 76.2 % 32.0-54.0 H IMMATURE GRANULOCYTE % (test 0.4 % 0.0-2.0 N code = IG%) LYMPHOCYTE % (test code = LY%) 16.5 % 28.0-48.0 L MONOCYTE % (test code = MO%) 6.0 % 3.0-15.0 N EOSINOPHIL % (test code = EO%) 0.6 % 1.0-8.0 L BASOPHIL % (test code = BA%) 0.3 % 0.0-2.0 N NUCLEATED RBC % (test code = 0.0 % 0-0 N NRBC%) NEUTROPHIL # (test code = NT#) 7.72 x10 3/uL 2.0-3.2 H IMMATURE GRANULOCYTE # (test 0.04 x10 3/uL 0.00-0.03 H code = IG#) LYMPHOCYTE # (test code = LY#) 1.67 x10 3/uL 1.0-3.8 N MONOCYTE # (test code = MO#) 0.61 x10 3/uL 0.1-0.8 N EOSINOPHIL # (test code = EO#) 0.06 x10 3/uL 0.0-0.4 N BASOPHIL # (test code = BA#) 0.03 x10 3/uL 0.0-0.2 N NUCLEATED RBC # (test code = 0.00 x10 3/uL 0.0-0.1 N NRBC#) MANUAL DIFF REQUIRED (test NO code = MDIFF) RBC [id number] 16:43:00 Test Item Value Reference Range Interpretation Comments ANISOCYTOSIS (test code = ANISO) CBC W/AUTO [id number] 16:43:00 Test Item Value Reference Range Interpretation Comments WHITE BLOOD CELL (test code = 10.13 x10 3/uL 4.5-13.0 N WBC) RED BLOOD CELL (test code = 4.18 x10 6/uL 4.2-5.4 L RBC) HEMOGLOBIN (test code = HGB) 8.8 g/dL 11.1-15.7 L HEMATOCRIT (test code = HCT) 29.7 % 34.0-44.0 L MEAN CELL VOLUME (test code = 71.1 fL 77.0-87.0 L MCV) MEAN CELL HGB (test code = 21.1 pg 26.0-30.0 L MCH) MEAN CELL HGB CONCETRATION 29.6 g/dL 32.0-36.0 L (test code = MCHC) RED CELL DISTRIBUTION WIDTH CV 17.0 % 11.5-14.5 H (test code = RDW) RED CELL DISTRIBUTION WIDTH SD 42.7 fL 37.0-54.0 N (test code = RDW-SD) PLATELET COUNT (test code = 369 x10 3/uL 150-450 N PLT) MEAN PLATELET VOLUME (test 10.5 fL 7.0-9.0 H code = MPV) NEUTROPHIL % (test code = NT%) 76.2 % 32.0-54.0 H IMMATURE GRANULOCYTE % (test 0.4 % 0.0-2.0 N code = IG%) LYMPHOCYTE % (test code = LY%) 16.5 % 28.0-48.0 L MONOCYTE % (test code = MO%) 6.0 % 3.0-15.0 N EOSINOPHIL % (test code = EO%) 0.6 % 1.0-8.0 L BASOPHIL % (test code = BA%) 0.3 % 0.0-2.0 N NUCLEATED RBC % (test code = 0.0 % 0-0 N NRBC%) NEUTROPHIL # (test code = NT#) 7.72 x10 3/uL 2.0-3.2 H IMMATURE GRANULOCYTE # (test 0.04 x10 3/uL 0.00-0.03 H code = IG#) LYMPHOCYTE # (test code = LY#) 1.67 x10 3/uL 1.0-3.8 N MONOCYTE # (test code = MO#) 0.61 x10 3/uL 0.1-0.8 N EOSINOPHIL # (test code = EO#) 0.06 x10 3/uL 0.0-0.4 N BASOPHIL # (test code = BA#) 0.03 x10 3/uL 0.0-0.2 N NUCLEATED RBC # (test code = 0.00 x10 3/uL 0.0-0.1 N NRBC#) MANUAL DIFF REQUIRED (test NO code = MDIFF) RBC [id number] 16:43:00 Test Item Value Reference Range Interpretation Comments ANISOCYTOSIS (test code = ANISO) URINALYSIS [id number] 02:59:00 Test Item Value Reference Range Interpretation Comments UA COLOR (test code = COLU) YELLOW YEL/STRAW UA APPEARANCE (test code = CLEAR CLEAR APPU) UA GLUCOSE DIPSTICK (test code NEGATIVE NEGATIVE = DGLUU) UA BILIRUBIN DIPSTICK (test NEGATIVE NEGATIVE code = BILU) UA KETONE DIPSTICK (test code NEGATIVE NEGATIVE = KETU) UA SPECIFIC GRAVITY (test code 1.013 1.005-1.030 N = SGU) UA BLOOD DIPSTICK (test code = NEGATIVE NEGATIVE MOY) UA PH DIPSTICK (test code = 6.0 5.0-7.0 N JOSE LUIS) UA PROTEIN DIPSTICK (test code NEGATIVE NEGATIVE = PROU) UA UROBILINIOGEN DIPSTICK 2.0 mg/dL 0.2-1.0 A (test code = URO) UA NITRITE DIPSTICK (test code NEGATIVE NEGATIVE = ANA) UA LEUKOCYTE ESTERASE DIPSTICK 1+ NEGATIVE A (test code = LEUU) UA WBC (test code = WBCU) 4-9 WBC/HPF 0-3 A UA RBC (test code = RBCU) 0-3 RBC/HPF 0-3 UA BACTERIA (test code = BACU) NONE SEEN /HPF NONE SEEN UA SQUAMOUS CELLS (test code = 0-5 /HPF NONE SEEN SQU) UA MUCUS (test code = MUCU) TRACE /LPF NONE SEEN URINALYSIS [id number] 02:58:00 Test Item Value Reference Range Interpretation Comments UA COLOR (test code = COLU) YEL/STRAW UA APPEARANCE (test code = CLEAR APPU) UA GLUCOSE DIPSTICK (test code NEGATIVE = DGLUU) UA BILIRUBIN DIPSTICK (test NEGATIVE code = BILU) UA KETONE DIPSTICK (test code NEGATIVE = KETU) UA SPECIFIC GRAVITY (test code 1.005-1.030 = SGU) UA BLOOD DIPSTICK (test code = NEGATIVE MOY) UA PH DIPSTICK (test code = 5.0-7.0 JOSE LUIS) UA PROTEIN DIPSTICK (test code NEGATIVE = PROU) UA UROBILINIOGEN DIPSTICK mg/dL 0.2-1.0 (test code = URO) UA NITRITE DIPSTICK (test code NEGATIVE = ANA) UA LEUKOCYTE ESTERASE DIPSTICK NEGATIVE (test code = LEUU) UA WBC (test code = WBCU) 4-9 WBC/HPF 0-3 A UA RBC (test code = RBCU) 0-3 RBC/HPF 0-3 UA BACTERIA (test code = BACU) NONE SEEN /HPF NONE SEEN UA SQUAMOUS CELLS (test code = 0-5 /HPF NONE SEEN SQU) UA MUCUS (test code = MUCU) TRACE /LPF NONE SEEN
[2022-11-20] MEDS ORDERED: ONDANSETRON 4 MG/2 ML VIAL ONE (09:03)
[2022-11-20] MEDS ORDERED: MAGNES/ALUMIN/SIMET 30ML UCUP ONE (09:03)
[2022-11-20] MEDS ORDERED: NA CHLORIDE 0.9% 1,000 ML ONE (09:04)
[2022-11-20] MEDS ORDERED: LIDOCAINE VISCOUS 2% SOLN 15 ML UDC ONE (09:04)
[2022-11-20 09:24] LABS: Urine Blood Negative (Negative); Urine Glucose Negative (Negative); Urine Protein 1+ (Negative)
[2022-11-20 09:40] LABS: Absolute Lymphocytes (CBC) 1.4 K/uL (0.7-4.9); Hematocrit 37.9 % (36.0-45.0); Lymphocytes % 11.5 % (15.3-44.8); MCV 75.5 fL (80-100); RBC Red Blood Cell Count 5.02 M/uL (3.86-4.86)
[2022-11-20 09:49] LABS: Albumin 3.7 g/dL (3.4-5.0); Bilirubin Total 0.5 mg/dL (0.2-1.0); Potassium 3.8 mmol/L (3.5-5.1); Protein, Total 7.7 g/dL (6.4-8.2)
[2022-11-20 10:06] LABS: SARS-COV-2 RT PCR NEGATIVE (NEGATIVE)
--- NOTE | 2022-11-20 10:21 | RAD REPORT ---
EXAM DESCRIPTION: CT - Abdomen Pelvis W Contrast - 11/20/2022 10:08 am CLINICAL HISTORY: Abdominal pain, nausea, vomiting and diarrhea. COMPARISON: None. TECHNIQUE: Biphasic, helical CT imaging of the abdomen and pelvis was performed following intravenou s administration of 95 mL Isovue-300. Multiplanar reformats were generated and reviewed. All CT scans are performed using dose optimization technique as appropriate and may include automated exposure control or mA/KV adjustment according to patient size. FINDINGS: No suspicious findings in the lung bases. The liver, spleen, and pancreas show no suspicious findings. Gallbladder and biliary tree are also wi thout suspicious finding. Symmetric renal function is seen with no hydronephrosis or suspicious renal mass. No dilated bowel loops or bowel wall thickening. No free air, free fluid or inflammatory stranding. N o hernia, mass or bulky lymphadenopathy. The urinary bladder suboptimally distended, limiting evaluat ion, without suspicious abnormality. No suspicious bony findings. IMPRESSION: No acute intra-abdominal process.
--- NOTE | 2022-11-20 10:46 | EDPHYS ---
Physician Documentation [facility] Name: Antonino Bowers Age: 22 yrs Sex: Female : 2000 Arrival Date: 11/20/2022 Time: 08:48 Bed 6 Private MD: ED Physician Alexis Godoy HPI: 11/20 09:00 This 22 yrs old Female presents to ER via Ambulatory with complaints of rn Abdominal Pain, Vomiting/Diarrhea. 09:00 The patient presents to the emergency department with nausea, vomiting, diarrhea, rn abdominal pain. Onset: The symptoms/episode began/occurred this morning. Possible causes: sick contacts, by a friend, ETOH. The symptoms are aggravated by nothing. The symptoms are alleviated by nothing. Associated signs and symptoms: Pertinent positives: abdominal pain, diarrhea, nausea, vomiting, Pertinent negatives: fever, GI bleeding. Severity of symptoms: At their worst the symptoms were mild in the emergency department the symptoms are unchanged. The patient has not experienced similar symptoms in the past. The patient has not recently seen a physician. Pt reports nausea/vomiting/diarrhea/abd pain that began this morning. Reports had multiple wine coolers last night. No fever. Friend here with similar symptoms. . 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 - Social history:: Smoking status: Patient denies any tobacco usage or history of. - Family history:: not pertinent. - Hospitalizations: : No recent hospitalization is reported. ROS: 09:00 Constitutional: Negative for fever, chills, and weight loss, Eyes: Negative for injury, rn pain, redness, and discharge, Neck: Negative for injury, pain, and swelling, Cardiovascular: Negative for chest pain, palpitations, and edema, Respiratory: Negative for shortness of breath, cough, wheezing, and pleuritic chest pain, Abdomen/GI: + abd pain/nausea/vomiting/diarrhea MS/Extremity: Negative for injury and deformity, Skin: Negative for injury, rash, and discoloration, Neuro: Negative for headache, weakness, numbness, tingling, and seizure. Exam: 09:00 Constitutional: This is a well developed, well nourished patient who is awake, alert, rn and in no acute distress. Head/Face: Normocephalic, atraumatic. ENT: dry MM Cardiovascular: Tachycardic, regular Respiratory: Lungs have equal breath sounds bilaterally, clear to auscultation and percussion. No rales, rhonchi or wheezes noted. No increased work of breathing, no retractions or nasal flaring. Abdomen/GI: + mid abd tenderness, no rebound, no masses, neg dunn Skin: Warm, dry MS/ Extremity: Pulses equal, no cyanosis. Neuro: Awake and alert, GCS 15 Vital Signs: 08:53 BP 120 / 78; Pulse 112; Resp 15; Pulse Ox 100% ; jl7 08:56 Temp 97.3; Weight 69.85 kg; Height 5 ft. 3 in. (160.02 cm); Pain 7/10; jl7 09:59 BP 112 / 78; Pulse 98; Resp 18; Pulse Ox 98% on R/A; ph 11:19 BP 118 / 72; Pulse 86; Resp 18; Temp 98.0; Pulse Ox 99% on R/A; ph 08:56 Body Mass Index 27.28 (69.85 kg, 160.02 cm) jl7 MDM: 08:49 Patient medically screened. rn 10:45 Differential diagnosis: Nonspecific abd pain, gastritis, pancreatitis, appendicitis, rn diverticulitis, viral gastroenteritis, gastroenteritis. Data reviewed: vital signs, nurses notes, lab test result(s), radiologic studies, CT scan, and as a result, I will discharge patient. Counseling: I had a detailed discussion with the patient and/or guardian regarding: the historical points, exam findings, and any diagnostic results supporting the discharge/admit diagnosis, lab results, radiology results, the need for outpatient follow up, to return to the emergency department if symptoms worsen or persist or if there are any questions or concerns that arise at home. Special discussion: I discussed with the patient/guardian in detail that at this point there is no indication for admission to the hospital. It is understood, however, that if the symptoms persist or worsen the patient needs to return immediately for re-evaluation. 11/20 08:56 Order name: CBC with Diff; Complete Time: 10:06 rn 11/20 08:56 Order name: CMP; Complete Time: 10:06 rn 11/20 08:56 Order name: Lipase; Complete Time: 10:06 rn 11/20 08:56 Order name: COVID-19/FLU A+B; Complete Time: 10:36 rn 11/20 09:24 Order name: Urine Dipstick-Ancillary; Complete Time: 09:41 EDMS 11/20 09:25 Order name: Urine --Ancillary (enter results); Complete Time: 11:12 eb 11/20 08:56 Order name: CT Abd/Pelvis - IV Contrast Only rn 11/20 08:56 Order name: IV Saline Lock; Complete Time: 09:23 rn 11/20 08:56 Order name: Labs collected and sent; Complete Time: 09:19 rn 11/20 08:56 Order name: Urine Dipstick-Ancillary (obtain specimen); Complete Time: 08:57 rn 11/20 10:21 Order name: CT; Complete Time: 10:36 EDMO 11/20 08:56 Order name: Urine Test (obtain specimen); Complete Time: 08:57 rn Administered Medications: 09:19 Drug: Zofran (Ondansetron) 4 mg Route: IVP; Site: left antecubital; ph 11:18 Follow up: Response: No adverse reaction ph 09:37 Drug: NS 0.9% 1000 ml Route: IV; Rate: 1 bolus; Site: left antecubital; jl7 11:18 Follow up: Response: No adverse reaction; IV Status: Completed infusion; IV Intake: ph 1000ml 11:18 Drug: GI Cocktail without - (Maalox Suspension 30 ml, Lidocaine Liquid 2 % 15 ph ml) Route: PO; 11:18 Follow up: Response: No adverse reaction ph Disposition Summary: 11/20/22 10:46 Discharge Ordered Location: Home rn Problem: new rn Symptoms: have improved rn Condition: Stable rn Diagnosis - Abdominal pain, unspecified rn - Nausea with vomiting, unspecified rn - Diarrhea, unspecified rn Followup: rn - With: Private Physician - When: As needed - Reason: Recheck today's complaints, Re-evaluation by your physician Discharge Instructions: - Discharge Summary Sheet rn - Abdominal Pain, Adult rn - Diarrhea, Adult rn - Nausea and Vomiting, Adult rn Forms: - Medication Reconciliation Form rn - Thank You Letter rn - Antibiotic rn x ray - Prescription Opioid Use rn Prescriptions: - ondansetron 4 mg Oral - take 4 milligrams by SUBLINGUAL route every 8 hours; 10 tablet; Refills: 0, rn Product Selection Permitted Signatures: Dispatcher [employer] EDMS Alexis Godoy MD MD rn Hall, Patricia, RN RN ph Kathie Alejandra RN RN jl7 Corrections: (The following items were deleted from the chart) 09:06 09:00 Constitutional: This is a well developed, well nourished patient who is awake, rn alert, and in no acute distress. Head/Face: Normocephalic, atraumatic. ENT: dry MM Cardiovascular: Tachycardic, regular Respiratory: Lungs have equal breath sounds bilaterally, clear to auscultation and percussion. No rales, rhonchi or wheezes noted. No increased work of breathing, no retractions or nasal flaring. Abdomen/GI: + nausea/vomiting/diarrhea Skin: Warm, dry MS/ Extremity: Pulses equal, no cyanosis. Neuro: Awake and alert, GCS 15 rn
--- NOTE | 2022-11-20 10:46 | ER ---
Nurse's Notes [facility] Name: Antonino Bowers Age: 22 yrs Sex: Female : 2000 Arrival Date: 11/20/2022 Time: 08:48 Bed 6 Private MD: Diagnosis: Abdominal pain, unspecified;Nausea with vomiting, unspecified;Diarrhea, unspecified Presentation: 11/20 08:53 Chief complaint: Patient states: Mid abdominal pain, N/V/D since this morning. jl7 Coronavirus screen: At this time, the client does not indicate any symptoms associated with coronavirus-19. Ebola Screen: No symptoms or risks identified at this time. Initial Sepsis Screen: Does the patient meet any 2 criteria? No. Patient's initial sepsis screen is negative. Does the patient have a suspected source of infection? No. Patient's initial sepsis screen is negative. Risk Assessment: Do you want to hurt yourself or someone else? Patient reports no desire to harm self or others. Onset of symptoms was November 20, 2022. 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 - Social history:: Smoking status: Patient denies any tobacco usage or history of. - Family history:: not pertinent. - Hospitalizations: : No recent hospitalization is reported. Screenin:53 [facility] ED Fall Risk Assessment (Adult) History of falling in the last 3 months, jl7 including since admission No falls in past 3 months (0 pts). Abuse screen: Denies threats or abuse. Denies injuries from another. Nutritional screening: No deficits noted. Tuberculosis screening: No symptoms or risk factors identified. Assessment: 08:53 Reassessment: Dr. Godoy at bedside assessing pt. jl7 08:56 General: Appears in no apparent distress. comfortable, well groomed, Behavior is calm, ph cooperative, appropriate for age, Reports chills for Denies fever. Pain: Complains of pain in umbilical area and right upper quadrant. Neuro: Level of Consciousness is awake, alert, obeys commands, Oriented to person, place, time, situation. Cardiovascular: Capillary refill < 3 seconds in bilateral fingers Patient's skin is warm and dry. Respiratory: Airway is patent Respiratory effort is even, unlabored, Denies cough. GI: Abdomen is non-distended, Bowel sounds present X 4 quads. Abd is soft X 4 quads Abdomen is tender to palpation in umbilical area Reports upper abdominal pain, diarrhea, nausea, vomiting. Derm: Skin is healthy with good turgor, Skin is pink, warm \T\ dry. Musculoskeletal: Circulation, motion, and sensation intact. Range of motion: intact in all extremities. 09:58 Reassessment: Patient appears in no apparent distress at this time. Patient and/or ph family updated on plan of care and expected duration. Pain level reassessed. Patient is alert, oriented x 3, equal unlabored respirations, skin warm/dry/pink. Pt taken to CT. 11:19 Reassessment: Patient appears in no apparent distress at this time. Patient and/or ph family updated on plan of care and expected duration. Pain level reassessed. Patient is alert, oriented x 3, equal unlabored respirations, skin warm/dry/pink. Vital Signs: 08:53 BP 120 / 78; Pulse 112; Resp 15; Pulse Ox 100% ; jl7 08:56 Temp 97.3; Weight 69.85 kg; Height 5 ft. 3 in. (160.02 cm); Pain 7/10; jl7 09:59 BP 112 / 78; Pulse 98; Resp 18; Pulse Ox 98% on R/A; ph 11:19 BP 118 / 72; Pulse 86; Resp 18; Temp 98.0; Pulse Ox 99% on R/A; ph 08:56 Body Mass Index 27.28 (69.85 kg, 160.02 cm) jl7 ED Course: 08:48 Patient arrived in ED. mr 08:49 Alexis Godoy MD is Attending Physician. rn 08:50 Linda Diaz RN is Primary Nurse. ph 08:53 Patient has correct armband on for positive identification. Pulse ox on. NIBP on. jl7 08:54 Triage completed. jl7 08:54 Arm band placed on right wrist. jl7 09:18 Initial lab(s) drawn, by or, sent to lab. Urine collected:. Missed attempt(s): 22 gauge ph in right antecubital area. Bleeding controlled, band aid applied, catheter tip intact. Inserted saline lock: 20 gauge in left antecubital area, using aseptic technique. Blood collected. 09:19 COVID-19/FLU A+B Sent. ph 09:37 Inserted saline lock: 22 gauge in left antecubital area, using aseptic technique. jl7 11:19 No provider procedures requiring assistance completed. IV discontinued, intact, ph bleeding controlled, No redness/swelling at site. Pressure dressing applied. Administered Medications: 09:19 Drug: Zofran (Ondansetron) 4 mg Route: IVP; Site: left antecubital; ph 11:18 Follow up: Response: No adverse reaction ph 09:37 Drug: NS 0.9% 1000 ml Route: IV; Rate: 1 bolus; Site: left antecubital; jl7 11:18 Follow up: Response: No adverse reaction; IV Status: Completed infusion; IV Intake: ph 1000ml 11:18 Drug: GI Cocktail without - (Maalox Suspension 30 ml, Lidocaine Liquid 2 % 15 ph ml) Route: PO; 11:18 Follow up: Response: No adverse reaction ph Medication: 08:53 VIS not applicable for this client. jl7 Intake: 11:18 IV: 1000ml; Total: 1000ml. ph Outcome: 10:46 Discharge ordered by . rn 11:19 Discharged to home ambulatory. ph 11:19 Condition: good 11:19 Discharge instructions given to patient, Instructed on discharge instructions, the need for admit, medication usage, Demonstrated understanding of instructions, follow-up care, medications, Prescriptions given X 1. 11:20 Patient left the ED. ph Signatures: Stacey Jon Roman, MD MD rn Hall, Patricia, RN RN ph Leal, Jahala, RN RN jl7
[2022-11-20 12:06] VITALS: BP 118/72; TEMP 98; O2SAT 99
== END 2022-11-20 11:20 | disposition home or self-care (01) ==
LOC: ER 08:45
DX: R10.9 Unspecified abdominal pain (principal); R11.2 Nausea with vomiting, unspecified; R19.7 Diarrhea, unspecified; Z20.822 Contact with and (suspected) exposure to COVID-19
CPT/HCPCS: 96361; 85025; 36415; 81025; 81003; 83690; 80053; 0240U; 74177; 96374; 99284; Q9967; J7030; J2405